=== PATIENT | female | born 1950 | race Caucasian/White ===

== ENCOUNTER 2016-11-10 17:04 | Inpatient (IN) | payer MEDICARE ==
[~2016-11-10] VITALS: Ht 165.1 cm; Wt 83.0 kg
[2016-11-10 17:07] VITALS: BP 105/57; PULSE 118; RESP 15; TEMP 98; O2SAT 96
--- NOTE | 2016-11-10 19:05 | PD ---
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 Patient endorses shortness of breath, weakness. She denies dysuria, back pain. She states that after her hip surgery she was told that her spleen was very enlarged. She just moved to the area, no local primary care. PFSH Past Medical History ?: Not Social History Tobacco Use: No Allergies-Medications (Allergen,Severity, Reaction): Coded Allergies: Dilaudid (Verified Allergy, Unknown, 11/10/16) Reported Meds & Prescriptions Reported Meds & Active Scripts Active Reported Multi Vitamin (Multiple Vitamin) 1 Tab Tab 1 Tab PO DAILY E400 (Vitamin E) 400 Unit Cap 400 Mg PO DAILY Ursodiol 300 Mg Cap 800 Mg PO TID Lorraine (Lorraine (Zingiber Officinalis)) 500 Mg Cap 500 Mg PO DAILY Ferrous Gluconate 324 Mg Tab 324 Mg PO DAILY B-12 (Cyanocobalamin) 1,000 Mcg Subl 800 Mcg SL DAILY Calcium Magnesium 750 (Calcium-Magnesium) 300-300 Mg Tab 1 Tab PO Calcium Carbonate 500 Mg Chew 500 Mg CHEW DAILY 500 mg calcium carbonate (200 mg elemental calcium) Review of Systems Except as stated in HPI: all other systems reviewed are Neg Physical Exam Narrative GENERAL: Well-nourished, well-developed ill-appearing, tremulous white female in moderate distress. SKIN: Pale, cool, dry. HEAD: Normocephalic. EYES: No scleral icterus. No injection or drainage. NECK: Supple, trachea midline. No JVD or lymphadenopathy. CARDIOVASCULAR: Regular rate and rhythm without murmurs, gallops, or rubs. 2+ DP and radial pulses bilaterally. RESPIRATORY: Breath sounds clear and equal bilaterally. No accessory muscle use. GASTROINTESTINAL: Abdomen soft, mildly distended, diffusely, mildly tender. MUSCULOSKELETAL: No cyanosis. Bilateral pitting edema of the lower extremities , left greater than right. BACK: Nontender without obvious deformity. No CVA tenderness. Data Data Last Documented VS Vital Signs Date Time Temp Pulse Resp B/P Pulse Ox O2 Delivery O2 Flow Rate FiO2 11/10/16 19:59 96 Room Air 11/10/16 17:07 98.0 118 15 105/57 Orders Complete Blood Count With Diff (11/10/16 17:13) Comprehensive Metabolic Panel (11/10/16 17:13) Prothrombin Time / Inr (Pt) (11/10/16 17:13) Act Partial Throm Time (Ptt) (11/10/16 17:13) Type And Screen (11/10/16 17:13) Lipase (11/10/16 19:19) Lactic Acid (11/10/16 19:19) Urinalysis - C+S If Indicated (11/10/16 19:19) Ct Abd/Pel W Iv Contrast(Rout) (11/10/16 19:19) Iv Access Insert/Monitor (11/10/16 19:19) Ecg Monitoring (11/10/16 19:19) Oximetry (11/10/16 19:19) NPO (11/10/16 19:19) Ondansetron Inj (Zofran Inj) (11/10/16 19:30) Sodium Chlor 0.9% 1000 Ml Inj (Ns 1000 M (11/10/16 19:19) Electrocardiogram (11/10/16 19:19) Morphine Inj (Morphine Inj) (11/10/16 19:30) Chest, Single Ap (11/10/16 ) Blood Culture (11/10/16 20:16) Sodium Chlor 0.9% 1000 Ml Inj (Ns 1000 M (11/10/16 20:16) Sodium Chlor 0.9% 1000 Ml Inj (Ns 1000 M (11/10/16 20:16) Sodium Chlor 0.9% 1000 Ml Inj (Ns 1000 M (11/10/16 20:16) Labs Laboratory Tests Test 11/10/16 19:50 Blood Type O POSITIVE Blood Bank Comment MDM Medical Decision Making Medical Screen Exam Complete: Yes Emergency Medical Condition: Yes Differential Diagnosis GI bleed versus bowel obstruction versus anemia versus cirrhosis versus liver failure versus other Narrative Course 56-year-old female with history of primary biliary cirrhosis, 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 Patient endorses shortness of breath, weakness. She denies dysuria, back pain. She states that after her hip surgery she was told that her spleen was very enlarged. She just moved to the area, no local primary care. Currently ambulate with a walker, in rehabilitation status post hip replacement. Vitals reviewed. Patient is tachycardic and hypotensive on presentation. On physical exam she is ill-appearing, pale, tremulous. Chest is clear to auscultation bilaterally. Abdomen is mildly distended, mildly tender. Bilateral lower extremity edema, left greater than right. Equal pulses in the extremities. Lab work, blood cultures, EKG, imaging ordered. IV fluid bolus, morphine, Zofran ordered. This patient is transferred to the medical pods under the care of Dr. Ma. Please see his note for disposition. Sepsis Criteria SIRS Criteria (2 or more): Heart rate over 90 Sepsis Criteria (SIRS+source): Infect source susp/known Severe Sepsis (+one): Hypotension, Lactate >2 Criteria Outcome: Meets SIRS criteria, Meets sepsis criteria, Meets severe sepsis criteria Dede Brown Nov 10, 2016 19:05
[2016-11-10] MEDS ORDERED: SODIUM CHLOR 0.9% 1000 ML INJ 1,000 ML IV SCH (19:19)
[2016-11-10] MEDS ORDERED: MORPHINE SULFATE 8 MG/ML INJ IV PUSH ONE (19:30)
[2016-11-10] MEDS ORDERED: ONDANSETRON HCL 4 MG/2 ML VIAL IVP ONE ×2 (19:30→22:15)
[2016-11-10 19:59] VITALS: O2SAT 96
[2016-11-10] MEDS ORDERED: CYAN100025 SL (20:04)
[2016-11-10] MEDS ORDERED: [UNRECOGNIZED DRUG - CODE] PO (20:04)
[2016-11-10] MEDS ORDERED: MULT-135 PO (20:04)
[2016-11-10] MEDS ORDERED: FERR324T PO (20:04)
[2016-11-10] MEDS ORDERED: CALC500C6 CHEW (20:04)
[2016-11-10] MEDS ORDERED: URSO300C2 PO (20:04)
[2016-11-10] MEDS ORDERED: GING500C PO (20:04)
[2016-11-10] MEDS ORDERED: CALCTAB10 PO (20:04)
[2016-11-10 20:09] LABS: AUTOMATED NEUTROPHIL # 6.5 TH/MM3 (1.8-7.7); BASOPHIL # 0.1 TH/MM3 (0-0.2); BASOPHIL % 0.7 % (0.0-2.0); EOSINOPHIL % 0.3 % (0.0-4.0); LYMPH % 17.2 % (9.0-44.0); LYMPHOCYTE # 1.5 TH/MM3 (1.0-4.8); MEAN CORPUSCULAR HEMOGLOBIN 27.8 PG (27.0-34.0); MEAN CORPUSCULAR HGB CONC 33.2 % (32.0-36.0); NEUT % 76.8 % (16.0-70.0); PLATELET COUNT 191 TH/MM3 (150-450); RED BLOOD COUNT 2.39 MIL/MM3 (4.00-5.30); RED CELL DISTRIBUTION WIDTH 18.7 % (11.6-17.2); WHITE BLOOD COUNT 8.5 TH/MM3 (4.0-11.0)
[2016-11-10] MEDS ORDERED: SODIUM CHLOR 0.9% 1000 ML INJ 100 ML IV ONE (20:16)
[2016-11-10] MEDS ORDERED: SODIUM CHLOR 0.9% 1000 ML INJ 1,000 ML IV ONE ×2 (20:16)
--- NOTE | 2016-11-10 20:17 | PD ---
Physical Exam Narrative Patient was seen and examined with my molding line assistant. Patient has history of primary biliary cirrhosis and has been seen by GI specialist up normal. Patient does not have a local physician here. Patient noticed some black tarry stool since yesterday. Rectal exam hemocculted positive. Black tarry stool noted. Data Data Last Documented VS Vital Signs Date Time Temp Pulse Resp B/P Pulse Ox O2 Delivery O2 Flow Rate FiO2 11/10/16 19:59 96 Room Air 11/10/16 17:07 98.0 118 15 105/57 Orders Complete Blood Count With Diff (11/10/16 17:13) Comprehensive Metabolic Panel (11/10/16 17:13) Prothrombin Time / Inr (Pt) (11/10/16 17:13) Act Partial Throm Time (Ptt) (11/10/16 17:13) Type And Screen (11/10/16 17:13) Lipase (11/10/16 19:19) Lactic Acid (11/10/16 19:19) Urinalysis - C+S If Indicated (11/10/16 19:19) Ct Abd/Pel W Iv Contrast(Rout) (11/10/16 19:19) Iv Access Insert/Monitor (11/10/16 19:19) Ecg Monitoring (11/10/16 19:19) Oximetry (11/10/16 19:19) NPO (11/10/16 19:19) Ondansetron Inj (Zofran Inj) (11/10/16 19:30) Sodium Chlor 0.9% 1000 Ml Inj (Ns 1000 M (11/10/16 19:19) Electrocardiogram (11/10/16 19:19) Morphine Inj (Morphine Inj) (11/10/16 19:30) Chest, Single Ap (11/10/16 ) Blood Culture (11/10/16 20:16) Sodium Chlor 0.9% 1000 Ml Inj (Ns 1000 M (11/10/16 20:16) Sodium Chlor 0.9% 1000 Ml Inj (Ns 1000 M (11/10/16 20:16) Sodium Chlor 0.9% 1000 Ml Inj (Ns 1000 M (11/10/16 20:16) Labs Laboratory Tests Test 11/10/16 19:50 White Blood Count 8.5 TH/MM3 Red Blood Count 2.39 MIL/MM3 Hemoglobin 6.7 GM/DL Hematocrit 20.1 % Mean Corpuscular Volume 84.0 FL Mean Corpuscular Hemoglobin 27.8 PG Mean Corpuscular Hemoglobin 33.2 % Concent Red Cell Distribution Width 18.7 % Platelet Count 191 TH/MM3 Mean Platelet Volume 10.4 FL Neutrophils (%) (Auto) 76.8 % Lymphocytes (%) (Auto) 17.2 % Monocytes (%) (Auto) 5.0 % Eosinophils (%) (Auto) 0.3 % Basophils (%) (Auto) 0.7 % Neutrophils # (Auto) 6.5 TH/MM3 Lymphocytes # (Auto) 1.5 TH/MM3 Monocytes # (Auto) 0.4 TH/MM3 Eosinophils # (Auto) 0.0 TH/MM3 Basophils # (Auto) 0.1 TH/MM3 CBC Comment DIFF FINAL Differential Comment Prothrombin Time 12.7 SEC Prothromb Time International 1.1 RATIO Ratio Activated Partial 26.3 SEC Thromboplast Time Sodium Level 145 MEQ/L Potassium Level 4.1 MEQ/L Chloride Level 112 MEQ/L Carbon Dioxide Level 24.1 MEQ/L Anion Gap 9 MEQ/L Blood Urea Nitrogen 38 MG/DL Creatinine 0.68 MG/DL Estimat Glomerular Filtration 87 ML/MIN Rate Random Glucose 131 MG/DL Lactic Acid Level 2.2 mmol/L Calcium Level 7.9 MG/DL Total Bilirubin 0.7 MG/DL Aspartate Amino Transf 28 U/L (AST/SGOT) Alanine Aminotransferase 23 U/L (ALT/SGPT) Alkaline Phosphatase 194 U/L Total Protein 6.0 GM/DL Albumin 2.2 GM/DL Lipase 139 U/L Blood Type O POSITIVE Blood Bank Comment [facility] Supervised Visit with REILLY: Yes Interpretation(s) 2038 PM. CBC WBC 8.5.. Hemoglobin 6.7 hematocrit 20.1. 76 neutrophil. BUN 38. Creatinine 0.68. Lactic acid 2.2. Calcium 7.9. Alkaline phosphatase 194. Narrative Course Normal saline solution 1 L IV bolus. Normal saline solution 70 cc an hour. Protonix 40 mg IV. Diagnosis Primary Impression: GI bleed Qualified Code: K92.2 - Gastrointestinal hemorrhage, unspecified gastrointestinal hemorrhage type Additional Impression: Anemia Qualified Code: D64.9 - Anemia, unspecified type Admitting Information Admitting Physician Requests: Admit Sanya Ma MD Nov 10, 2016 20:17
[2016-11-10 20:20] LABS: APTT (PATIENT) 26.3 SEC (24.3-30.1); INTERNATIONAL NORMALIZED RATIO 1.1 RATIO; PROTHROMBIN TIME - PATIENT 12.7 SEC (9.8-11.6)
[2016-11-10 20:24] LABS: ANION GAP 9 MEQ/L (5-15); AST (GOT) 28 U/L (15-37); BICARBONATE 24.1 MEQ/L (21.0-32.0); BLOOD UREA NITROGEN 38 MG/DL (7-18); CHLORIDE 112 MEQ/L (98-107); GLOMERULAR FILTRATION RATE 87 ML/MIN (>89); POTASSIUM 4.1 MEQ/L (3.5-5.1); SODIUM (NA) 145 MEQ/L (136-145)
[2016-11-10 20:26] LABS: HEMO FLAGS DIFF FINAL
[2016-11-10 20:27] LABS: ALKALINE PHOSPHATASE 194 U/L (45-117); ALT (GPT) 23 U/L (10-53); TOTAL BILIRUBIN ADULT 0.7 MG/DL (0.2-1.0)
[2016-11-10 20:28] LABS: HEMATOCRIT 20.1 % (35.0-46.0)
[2016-11-10] MEDS ORDERED: PANTOPRAZOLE SODIUM 40 MG VIAL IV PUSH ONE (20:45)
[2016-11-10] MEDS ORDERED: IOHEXOL 350 MG/ML 10 ML VIAL (for RAD DIAG) IV ONE (20:50)
--- NOTE | 2016-11-10 21:10 | RADRPT ---
EXAM DATE/TIME: 11/10/2016 20:47 [facility] COMPARISON: No previous studies available for comparison. INDICATIONS : Nausea, diarrhea and melena. IV CONTRAST: 70 cc Omnipaque 350 (iohexol) IV ORAL CONTRAST: No oral contrast ingested. RADIATION DOSE: 8.27 CTDIvol (mGy) MEDICAL HISTORY : Primary biliary sarcosis. SURGICAL HISTORY : Left femur cyril. Liver transplant. ENCOUNTER: Initial ACUITY: 1 day PAIN SCALE: 6/10 LOCATION: Bilateral upper quadrant TECHNIQUE: Volumetric scanning of the abdomen and pelvis was performed. Using automated exposure control and ad justment of the mA and/or kV according to patient size, radiation dose was kept as low as reasonably achievable to obtain optimal diagnostic quality images. FINDINGS: There is subsegmental airspace disease at the right lung base. There is liver cirrhosis with moderate ascites. Small hiatal hernia. Small varices suspected near the GE junction. Spleen is mildly prominent in size. Adrenals, kidneys and pancreas unremarkable. No bob cified gallstones are blue ductal dilatation. There is no bowel obstruction. No free air. There is a mild compression fracture through superior end plate of L2 of uncertain age but probably subacute. CONCLUSION: 1. Liver cirrhosis with moderate ascites. Mild varices in the upper abdomen. 2. Mild infiltrate right lung base. 3. Compression fracture of L2. 4. Small hiatal hernia. John Steele MD on November 10, 2016 at 21:05 Board Certified Radiologist. This report was verified electronically.
[2016-11-10] MEDS ORDERED: SODIUM CHLOR 0.9% 250 ML INJ 250 ML IV ONE (21:15)
[2016-11-10 21:34] VITALS: BP 112/52; PULSE 98; RESP 18; O2SAT 97
--- NOTE | 2016-11-10 21:48 | RADRPT ---
EXAM DATE/TIME: 11/10/2016 20:00 [facility] COMPARISON: No previous studies available for comparison. INDICATIONS : Cough for two weeks and blood in stool. MEDICAL HISTORY : None. SURGICAL HISTORY : None. ENCOUNTER: Initial ACUITY: 2 weeks PAIN SCORE: 3/10 LOCATION: Right lower chest FINDINGS: A single view of the chest demonstrates linear atelectasis or scarring at the lung bases. No effusion . No pneumothorax. Heart size within normal limits. CONCLUSION: 1. Linear atelectasis or scarring at the lung bases. No effusion. No pneumothorax. John Steele MD on November 10, 2016 at 21:46 Board Certified Radiologist. This report was verified electronically.
[2016-11-10 22:02] VITALS: BP 114/57; PULSE 92; RESP 18; TEMP 98.1; O2SAT 98
--- NOTE | 2016-11-10 22:06 | PD ---
Physical Exam Date Seen by Provider: Nov 10, 2016 Time Seen by Provider: 22:00 Narrative Accepted in transfer of care from Dr. Ma GENERAL: Well-developed well-nourished pale female in no acute distress no respiratory distress SKIN: Warm and dry. HEAD: Normocephalic. EYES: No scleral icterus. No injection or drainage. NECK: Supple, trachea midline. No JVD or lymphadenopathy. CARDIOVASCULAR: Regular rate and rhythm without murmurs, gallops, or rubs. RESPIRATORY: Breath sounds equal bilaterally. No accessory muscle use. GASTROINTESTINAL: Abdomen soft, non-tender, nondistended. MUSCULOSKELETAL: No cyanosis, bilateral lower extremity edema. BACK: Nontender without obvious deformity. No CVA tenderness. Data Data Last Documented VS Vital Signs Date Time Temp Pulse Resp B/P Pulse Ox O2 Delivery O2 Flow Rate FiO2 11/10/16 22:02 98.1 92 18 114/57 98 Room Air Orders Complete Blood Count With Diff (11/10/16 17:13) Comprehensive Metabolic Panel (11/10/16 17:13) Prothrombin Time / Inr (Pt) (11/10/16 17:13) Act Partial Throm Time (Ptt) (11/10/16 17:13) Type And Screen (11/10/16 17:13) Lipase (11/10/16 19:19) Lactic Acid (11/10/16 19:19) Urinalysis - C+S If Indicated (11/10/16 19:19) Ct Abd/Pel W Iv Contrast(Rout) (11/10/16 19:19) Iv Access Insert/Monitor (11/10/16 19:19) Ecg Monitoring (11/10/16 19:19) Oximetry (11/10/16 19:19) NPO (11/10/16 19:19) Ondansetron Inj (Zofran Inj) (11/10/16 19:30) Sodium Chlor 0.9% 1000 Ml Inj (Ns 1000 M (11/10/16 19:19) Electrocardiogram (11/10/16 19:19) Morphine Inj (Morphine Inj) (11/10/16 19:30) Chest, Single Ap (11/10/16 ) Blood Culture (11/10/16 20:16) Sodium Chlor 0.9% 1000 Ml Inj (Ns 1000 M (1/20/17 20:16) Sodium Chlor 0.9% 1000 Ml Inj (Ns 1000 M (11/10/16 20:16) Sodium Chlor 0.9% 1000 Ml Inj (Ns 1000 M (11/10/16 20:16) Pantoprazole Inj (Protonix Inj) (11/10/16 20:45) Iohexol 350 Inj (Omnipaque 350 Inj) (11/10/16 20:50) Red Blood Cells (Rbc) (11/10/16 21:01) Blood Product Administration .UPON TRANSFUSION (11/10/16 21:01) Sodium Chlor 0.9% 250 Ml Inj (Ns 250 Ml (11/10/16 21:15) Ondansetron Inj (Zofran Inj) (11/10/16 22:15) Sodium Chloride 0.9% Flush (Ns Flush) (11/10/16 22:15) Octreotide Inj (Sandostatin Inj) (11/10/16 22:15) Pantoprazole Inj (Protonix Inj) (11/10/16 22:15) Pantoprazole Inj (Protonix Inj) (11/10/16 22:15) Labs Laboratory Tests Test 11/10/16 11/10/16 19:50 21:25 White Blood Count 8.5 TH/MM3 Red Blood Count 2.39 MIL/MM3 Hemoglobin 6.7 GM/DL Hematocrit 20.1 % Mean Corpuscular Volume 84.0 FL Mean Corpuscular Hemoglobin 27.8 PG Mean Corpuscular Hemoglobin 33.2 % Concent Red Cell Distribution Width 18.7 % Platelet Count 191 TH/MM3 Mean Platelet Volume 10.4 FL Neutrophils (%) (Auto) 76.8 % Lymphocytes (%) (Auto) 17.2 % Monocytes (%) (Auto) 5.0 % Eosinophils (%) (Auto) 0.3 % Basophils (%) (Auto) 0.7 % Neutrophils # (Auto) 6.5 TH/MM3 Lymphocytes # (Auto) 1.5 TH/MM3 Monocytes # (Auto) 0.4 TH/MM3 Eosinophils # (Auto) 0.0 TH/MM3 Basophils # (Auto) 0.1 TH/MM3 CBC Comment DIFF FINAL Differential Comment Prothrombin Time 12.7 SEC Prothromb Time International 1.1 RATIO Ratio Activated Partial 26.3 SEC Thromboplast Time Sodium Level 145 MEQ/L Potassium Level 4.1 MEQ/L Chloride Level 112 MEQ/L Carbon Dioxide Level 24.1 MEQ/L Anion Gap 9 MEQ/L Blood Urea Nitrogen 38 MG/DL Creatinine 0.68 MG/DL Estimat Glomerular Filtration 87 ML/MIN Rate Random Glucose 131 MG/DL Lactic Acid Level 2.2 mmol/L Calcium Level 7.9 MG/DL Total Bilirubin 0.7 MG/DL Aspartate Amino Transf 28 U/L (AST/SGOT) Alanine Aminotransferase 23 U/L (ALT/SGPT) Alkaline Phosphatase 194 U/L Total Protein 6.0 GM/DL Albumin 2.2 GM/DL Lipase 139 U/L Blood Type O POSITIVE O POSITIVE Antibody Screen NEGATIVE Crossmatch Leukocyte-Reduced Red Blood Cells Blood Bank Comment [facility] Medical Record Reviewed: Yes Supervised Visit with REILLY: No Interpretation(s) Laboratory Tests Test 11/10/16 11/10/16 19:50 21:25 White Blood Count 8.5 TH/MM3 Red Blood Count 2.39 MIL/MM3 Hemoglobin 6.7 GM/DL Hematocrit 20.1 % Mean Corpuscular Volume 84.0 FL Mean Corpuscular Hemoglobin 27.8 PG Mean Corpuscular Hemoglobin 33.2 % Concent Red Cell Distribution Width 18.7 % Platelet Count 191 TH/MM3 Mean Platelet Volume 10.4 FL Neutrophils (%) (Auto) 76.8 % Lymphocytes (%) (Auto) 17.2 % Monocytes (%) (Auto) 5.0 % Eosinophils (%) (Auto) 0.3 % Basophils (%) (Auto) 0.7 % Neutrophils # (Auto) 6.5 TH/MM3 Lymphocytes # (Auto) 1.5 TH/MM3 Monocytes # (Auto) 0.4 TH/MM3 Eosinophils # (Auto) 0.0 TH/MM3 Basophils # (Auto) 0.1 TH/MM3 CBC Comment DIFF FINAL Differential Comment Prothrombin Time 12.7 SEC Prothromb Time International 1.1 RATIO Ratio Activated Partial 26.3 SEC Thromboplast Time Sodium Level 145 MEQ/L Potassium Level 4.1 MEQ/L Chloride Level 112 MEQ/L Carbon Dioxide Level 24.1 MEQ/L Anion Gap 9 MEQ/L Blood Urea Nitrogen 38 MG/DL Creatinine 0.68 MG/DL Estimat Glomerular Filtration 87 ML/MIN Rate Random Glucose 131 MG/DL Lactic Acid Level 2.2 mmol/L Calcium Level 7.9 MG/DL Total Bilirubin 0.7 MG/DL Aspartate Amino Transf 28 U/L (AST/SGOT) Alanine Aminotransferase 23 U/L (ALT/SGPT) Alkaline Phosphatase 194 U/L Total Protein 6.0 GM/DL Albumin 2.2 GM/DL Lipase 139 U/L Blood Type O POSITIVE O POSITIVE Antibody Screen NEGATIVE Crossmatch Leukocyte-Reduced Red Blood Cells Blood Bank Comment Last Impressions Abdomen/Pelvis CT 11/10/16 1919 Signed Impressions: Service Date/Time: Thursday, November 10, 2016 20:47 - CONCLUSION: 1. Liver cirrhosis with moderate ascites. Mild varices in the upper abdomen. 2. Mild infiltrate right lung base. 3. Compression fracture of L2. 4. Small hiatal hernia. John Steele MD Chest X-Ray 11/10/16 0000 Signed Impressions: Service Date/Time: Thursday, November 10, 2016 20:00 - CONCLUSION: 1. Linear atelectasis or scarring at the lung bases. No effusion. No pneumothorax. John Steele MD Differential Diagnosis Generalized weakness, anemia, GI bleed, esophageal variceal bleed Narrative Course Accepted in transfer of care from Dr. Ma for patient disposition Patient identified to have anemia associated with GI bleed with black tarry stools and by CT evidence of esophageal varices; Patient's had nausea without vomiting; Physician Communication Physician Communication case discussed with [facility] for admission; call placed to pattern repair person GI Diagnosis Primary Impression: GI bleed Qualified Code: K92.2 - Gastrointestinal hemorrhage, unspecified gastrointestinal hemorrhage type Additional Impression: Anemia Qualified Code: D64.9 - Anemia, unspecified type Stephanie Almanzar MD Nov 10, 2016 22:06
[2016-11-10] MEDS ORDERED: PANTOPRAZOLE INJ 80 MG in SODIUM CHLORIDE 0.9% INJ 35 ML IV ONE (22:15)
[2016-11-10] MEDS ORDERED: SODIUM CHLORIDE 0.9% FLUSH 5 ML FLUSH IVF PRN ×2 (22:15→23:00)
[2016-11-10] MEDS: OCTREOTIDE INJ 500 MCG in SODIUM CHLORID 0.9% 500 ML INJ 500 ML IV SCH (23:09)
[2016-11-10] MEDS: PANTOPRAZOLE INJ 80 MG in SODIUM CHLORIDE 0.9% INJ 100 ML IV SCH (23:09)
[2016-11-10 23:45] VITALS: BP 103/59; PULSE 98; RESP 18; TEMP 98.4; O2SAT 99
[2016-11-11] VITALS (21 sets, daily range): BP systolic 90–122; BP diastolic 45–64; PULSE 62–96; RESP 12–20; TEMP 97.6–98.8; O2SAT 95–100
[2016-11-11 00:07] LABS: BLOOD, URINE NEG (NEG); COMMENT (UR) CULT NOT INDICATED; CULTURE IF INDICATED CULT NOT INDICATED; GLUCOSE,URINE NEG (NEG); KETONE, URINE NEG (NEG); MUCUS URINE FEW /lpf (OCC); NITRITE,URINE NEG (NEG); URINE COLOR YELLOW (YELLW/STRAW)
--- NOTE | 2016-11-11 00:40 | HHI.HP ---
HPI Service Critical Care Medicine Primary Care Physician No Primary Care Physician Admission Diagnosis GI bleed; esophageal varices Diagnosis: Travel History International Travel<30 Days: No Contact w/Intl Traveler <30 Da: No Traveled to Known Affected Are: No History of Present Illness HPI 56-year-old female with history of primary biliary cirrhosis, diagnosed in the 90s, recent left hip fracture with surgical repair who presented to the ER with melena going on for about 48 hours with diarrhea, abdominal distention/ discomfort and nausea. She denies any hematemesis. She does have some shortness of breath and generalized weakness. Denies any fevers or chills. Denies any back pain. She has just moved to the area. PFSH Past Medical History Primary biliary cirrhosis with known esophageal varices and portal hypertension. She was taken off propranolol around the time of her hip fracture surgery due to borderline blood pressures. History of melena a few years ago for which she underwent EGD which revealed esophageal varices. Colonoscopy and was found to have some polyps in the colon which were removed She was told she had an enlarged spleen when she underwent left hip fracture repair. Family history noncontributory at this time Social History Tobacco Use: No Allergies-Medications (Allergen,Severity, Reaction): Coded Allergies: Dilaudid (Verified Allergy, Unknown, 11/10/16) Reported Meds & Prescriptions Reported Meds & Active Scripts Active Reported Multi Vitamin (Multiple Vitamin) 1 Tab Tab 1 Tab PO DAILY E400 (Vitamin E) 400 Unit Cap 400 Mg PO DAILY Ursodiol 300 Mg Cap 800 Mg PO TID Lorraine (Lorraine (Zingiber Officinalis)) 500 Mg Cap 500 Mg PO DAILY Ferrous Gluconate 324 Mg Tab 324 Mg PO DAILY B-12 (Cyanocobalamin) 1,000 Mcg Subl 800 Mcg SL DAILY Calcium Magnesium 750 (Calcium-Magnesium) 300-300 Mg Tab 1 Tab PO Calcium Carbonate 500 Mg Chew 500 Mg CHEW DAILY 500 mg calcium carbonate (200 mg elemental calcium) Review of Systems Except as stated in HPI: all other systems reviewed are Neg Past Family Social History Allergies: Coded Allergies: Dilaudid (Verified Allergy, Unknown, 11/10/16) Physical Exam Vital Signs Vital Signs Date Time Temp Pulse Resp B/P Pulse Ox O2 Delivery O2 Flow Rate FiO2 11/10/16 23:45 98.4 98 18 103/59 99 Room Air 11/10/16 22:02 98.1 92 18 114/57 98 Room Air 11/10/16 21:34 98 18 112/52 97 Room Air 11/10/16 21:02 18 11/10/16 19:59 96 Room Air 11/10/16 17:07 98.0 118 15 105/57 96 Physical Exam Physical Exam Narrative GENERAL: Well-nourished, well-developed ill-appearing,white female, laying in bed in no acute distress. SKIN: Pale, cool, dry. HEAD: Normocephalic. EYES: Pallor present, No scleral icterus. No injection or drainage. NECK: Supple, trachea midline. No JVD or lymphadenopathy. CARDIOVASCULAR: Regular rate and rhythm without murmurs, gallops, or rubs. 2+ DP and radial pulses bilaterally. RESPIRATORY: Breath sounds clear and equal bilaterally. No accessory muscle use. GASTROINTESTINAL: Abdomen soft, mildly distended, mildly tender in the upper abdomen, no guarding. MUSCULOSKELETAL: No cyanosis. Bilateral pitting edema of the lower extremities , left greater than right. BACK: Nontender without obvious deformity. No CVA tenderness. Laboratory Laboratory Tests Test 11/10/16 11/10/16 11/10/16 19:50 21:25 23:40 White Blood Count 8.5 Red Blood Count 2.39 Hemoglobin 6.7 Hematocrit 20.1 Mean Corpuscular Volume 84.0 Mean Corpuscular Hemoglobin 27.8 Mean Corpuscular Hemoglobin 33.2 Concent Red Cell Distribution Width 18.7 Platelet Count 191 Mean Platelet Volume 10.4 Neutrophils (%) (Auto) 76.8 Lymphocytes (%) (Auto) 17.2 Monocytes (%) (Auto) 5.0 Eosinophils (%) (Auto) 0.3 Basophils (%) (Auto) 0.7 Neutrophils # (Auto) 6.5 Lymphocytes # (Auto) 1.5 Monocytes # (Auto) 0.4 Eosinophils # (Auto) 0.0 Basophils # (Auto) 0.1 CBC Comment DIFF FINAL Differential Comment Prothrombin Time 12.7 Prothromb Time International 1.1 Ratio Activated Partial 26.3 Thromboplast Time Sodium Level 145 Potassium Level 4.1 Chloride Level 112 Carbon Dioxide Level 24.1 Anion Gap 9 Blood Urea Nitrogen 38 Creatinine 0.68 Estimat Glomerular Filtration 87 Rate Random Glucose 131 Lactic Acid Level 2.2 Calcium Level 7.9 Total Bilirubin 0.7 Aspartate Amino Transf 28 (AST/SGOT) Alanine Aminotransferase 23 (ALT/SGPT) Alkaline Phosphatase 194 Total Protein 6.0 Albumin 2.2 Lipase 139 Blood Type O POSITIVE O POSITIVE Antibody Screen NEGATIVE Crossmatch Leukocyte-Reduced Red Blood Cells Blood Bank Comment Urine Color YELLOW Urine Turbidity CLEAR Urine pH 6.0 Urine Specific [place] 1.046 Urine Protein NEG Urine Glucose (UA) NEG Urine Ketones NEG Urine Occult Blood NEG Urine Nitrite NEG Urine Bilirubin NEG Urine Urobilinogen LESS THAN 2.0 Urine Leukocyte Esterase NEG Urine RBC 1 Urine WBC 1 Urine Mucus FEW Microscopic Urinalysis Comment CULT NOT INDICATED Date/Time Procedure Status Source Growth 11/10/16 21:35 Aerobic Blood Culture Received Blood Peripheral Pending 11/10/16 21:35 Anaerobic Blood Culture Received Blood Peripheral Pending Result Diagram: 11/10/16194911/10/161949 Imaging Last Impressions Abdomen/Pelvis CT 11/10/161918 Signed Impressions: Service Date/Time: Thursday, November 10, 2016 20:47 - CONCLUSION: 1. Liver cirrhosis with moderate ascites. Mild varices in the upper abdomen. 2. Mild infiltrate right lung base. 3. Compression fracture of L2. 4. Small hiatal hernia. John Steele MD Chest X-Ray 11/10/16 0000 Signed Impressions: Service Date/Time: Thursday, November 10, 2016 20:00 - CONCLUSION: 1. Linear atelectasis or scarring at the lung bases. No effusion. No pneumothorax. John Steele MD Assessment and Plan Assessment and Plan 66-year-old female with: Melena Acute blood loss anemia ; probably secondary to GI bleed from esophageal varices Primary biliary cirrhosis Portal hypertension History of esophageal varices Hypotension Plan: Neuro: Follow neuro status, pain medications as needed. Cardiovascular: Patient received 2 L normal saline earlier. Being transfused 2 units PRBCs. Fluid resuscitation as needed. Watch for hypotension. Pulmonary: Supple or the O2 as needed, bronchodilators when necessary. GI/liver: Nothing by mouth for now. Follow serial H&H, GI consult requested. Patient will probably need EGD/colonoscopy - to be decided by GI. Continue octreotide and Protonix drips. Renal/: Continue IV fluids, strict intake output, monitor and replete electrolytes, follow BUN/creatinine. Heme: Follow CBC and coags. Transfuse to keep hemoglobin above 7 g percent. 2 units PRBCs ordered now. Endocrine: Watch for hyperglycemia, SSI for glycemic control if needed. ID: Hold off on antibiotics at this time. Prophylaxis: Protonix drip, SCDs. No heparin or Lovenox in view of GI bleed. Condition critical Time spent on critical care excluding procedures 60 minutes Herman Velazquez MD Nov 11, 2016 00:40
[2016-11-11] MEDS ORDERED: PROCHLORPERAZINE INJ 10 MG/2 ML VIAL IVS PRN (00:45)
[2016-11-11] MEDS ORDERED: MISCELLANEOUS NURSING INFORMATION XX SCH (03:30)
[2016-11-11] MEDS ORDERED: METOCLOPRAMIDE HCL 10 MG/2 ML VIAL IV PRN (03:30)
[2016-11-11] MEDS ORDERED: SODIUM CHLORIDE 0.9% FLUSH 5 ML FLUSH IV FLUSH PRN (03:30)
[2016-11-11] MEDS ORDERED: ONDANSETRON HCL 4 MG/2 ML VIAL IV PRN (03:30)
[2016-11-11] MEDS ORDERED: CHLORHEXIDINE GLUCONATE 2 % 1 PACK (2 CLOTHS) TOP PRN (03:30)
[2016-11-11] MEDS ORDERED: ACETAMINOPHEN 325 MG TAB PO PRN (03:30)
[2016-11-11] MEDS ORDERED: PROCHLORPERAZINE 25 MG SUPP RECTAL PRN (03:30)
[2016-11-11] MEDS ORDERED: RESP: ALBUTEROL 2.5 MG/IPRATROPIUM 0.5 MG NEB (PRN) INH (03:30)
[2016-11-11] MEDS: SODIUM CHLOR 0.9% 1000 ML INJ 1,000 ML IV SCH ×2 (03:31→15:17)
[2016-11-11] MEDS: CHLORHEXIDINE GLUCONATE 2 % 1 PACK (2 CLOTHS) TOP SCH (04:00)
[2016-11-11] MEDS ORDERED: MORPHINE SULFATE 4 MG/ML INJ IV PRN (04:00)
[2016-11-11 08:20] LABS: HEMATOCRIT 22.9 % (35.0-46.0); REVIEW FLAG FINAL
[2016-11-11] MEDS: OCTREOTIDE INJ 500 MCG in SODIUM CHLORID 0.9% 500 ML INJ 500 ML IV SCH ×2 (08:50→18:40)
[2016-11-11] MEDS: PANTOPRAZOLE INJ 80 MG in SODIUM CHLORIDE 0.9% INJ 100 ML IV SCH ×2 (08:50→18:10)
[2016-11-11] MEDS: SODIUM CHLORIDE 0.9% FLUSH 5 ML FLUSH IV FLUSH SCH ×2 (09:00→21:00)
[2016-11-11] MEDS ORDERED: SODIUM CHLORIDE 0.9% FLUSH 5 ML FLUSH IVF SCH (09:00)
--- NOTE | 2016-11-11 09:07 | PD.CONS ---
HPI History of Present Illness This is a 66 year old female patient who recently located from [place] and came to the ER for GI Bleeding. She was diagnosed with primary biliary cirrhosis by liver biopsy in 1991. She takes Actigall 300mg po TID. She also has a hx of esophageal varices and underwent an EGD/Colonoscopy in November of 2015. She reports that she did not require banding at that time. She was started on propranolol at that time, but taken off of this in September because when she broke her femur and underwent surgery and was having low blood pressure at that time. On , she started having black tarry stools with some red blood. She also had abdominal bloating and a dull ache that went from her RUQ to her abdomen. She had nausea without vomiting. No jaundice. She did have some chills, but no fever. She had a decreased appetite. She cannot identify any aggravating or alleviating factors. She has not had any obvious GI bleeding before. She does drink ETOH or use NSAIDs. (Pamela Zavala) PFSH Past Medical History Primary biliary cirrhosis Esophageal varices Osteoporosis Osteoarthritis Left femoral neck fracture in September Ascites, never required paracentesis Past Surgical History ORIF Left femoral neck fx EGD/Colonoscopy Hysterectomy Cyst taken off left knee at age 13 Tonsillectomy (Pamela Zavala) Coded Allergies: Dilaudid (Verified Allergy, Unknown, 11/10/16) Medications Allergies Coded Allergies Type Severity Reaction Last Updated Verified Dilaudid Allergy Unknown 11/10/16 Yes Active Scripts Medications Dose Route/Sig Days Date Category Dose Instructions Multi Vitamin (Multiple Vitamin) 1 Tab Tab 1 Tab PO DAILY 11/10/16 Reported E400 (Vitamin E) 400 Unit Cap 400 Mg PO DAILY 11/10/16 Reported Ursodiol 300 Mg Cap 800 Mg PO TID 11/10/16 Reported Lorraine (Lorraine (Zingiber Officinalis)) 500 Mg Cap 500 Mg PO DAILY 11/10/16 Reported Ferrous Gluconate 324 Mg Tab 324 Mg PO DAILY 11/10/16 Reported B-12 (Cyanocobalamin) 1,000 Mcg Subl 800 Mcg SL DAILY 11/10/16 Reported Calcium Magnesium 750 (Calcium-Magnesium) 300-300 Mg Tab 1 Tab PO 11/10/16 Reported Calcium Carbonate 500 Mg Chew 500 Mg CHEW DAILY 11/10/16 Reported 500 mg calcium carbonate (200 mg elemental calcium) Family History Denies Social History No tobacco, etoh, or illicit drug use. (Pamela Zavala) Review of Systems Constitutional: COMPLAINS OF: Fatigue, Weight loss (20 lb weight loss since surgery- relates to swelling), Change in appetite Respiratory: COMPLAINS OF: Cough (2 weeks), DENIES: Shortness of breath Gastrointestinal: COMPLAINS OF: Abdominal pain, Black stools, Bloody stools, Nausea, DENIES: Vomiting Musculoskeletal: COMPLAINS OF: Joint pain, Back pain Integumentary: DENIES: Jaundice Hematologic/lymphatic: DENIES: Bruising Neurologic: DENIES: Headache Psychiatric: DENIES: Confusion (Pamela Zavala) GI Exam Vitals I&O Vital Signs Date Time Temp Pulse Resp B/P Pulse Ox O2 Delivery O2 Flow Rate FiO2 11/11/16 07:50 95 21 11/11/16 07:04 98/64 11/11/16 07:00 90 16 91/45 96 Nasal Cannula 2 11/11/16 04:52 98 21 11/11/16 04:21 89 18 90/55 98 Room Air 11/11/16 01:41 97.9 86 18 109/56 98 Room Air 11/11/16 00:36 62 18 100/56 98 Room Air 11/10/16 23:45 98.4 98 18 103/59 99 Room Air 11/10/16 22:02 98.1 92 18 114/57 98 Room Air 11/10/16 21:34 98 18 112/52 97 Room Air 11/10/16 21:02 18 11/10/16 19:59 96 Room Air 11/10/16 17:07 98.0 118 15 105/57 96 I/O 11/10/16 11/10/16 11/10/16 11/11/16 11/11/16 11/11/16 07:00 15:00 23:00 07:00 15:00 23:00 Intake Total 500 ml Output Total 650 ml Balance -150 ml Intake Packed Cells 500 ml Output Urine Total 650 ml Bladder Scan Volume Amount 650 ml Imaging Last Impressions Abdomen/Pelvis CT 11/10/16 191 Signed Impressions: Service Date/Time: Thursday, November 10, 2016 20:47 - CONCLUSION: 1. Liver cirrhosis with moderate ascites. Mild varices in the upper abdomen. 2. Mild infiltrate right lung base. 3. Compression fracture of L2. 4. Small hiatal hernia. John Steele MD Chest X-Ray 11/10/16 0000 Signed Impressions: Service Date/Time: Thursday, November 10, 2016 20:00 - CONCLUSION: 1. Linear atelectasis or scarring at the lung bases. No effusion. No pneumothorax. John Steele MD Laboratory Test 11/10/16 11/10/16 11/10/16 11/11/16 19:50 21:25 23:40 07:35 White Blood Count 8.5 TH/MM3 Red Blood Count 2.39 MIL/MM3 Hemoglobin 6.7 GM/DL 7.6 GM/DL Hematocrit 20.1 % 22.9 % Mean Corpuscular Volume 84.0 FL Mean Corpuscular Hemoglobin 27.8 PG Mean Corpuscular Hemoglobin 33.2 % Concent Red Cell Distribution Width 18.7 % Platelet Count 191 TH/MM3 Mean Platelet Volume 10.4 FL Neutrophils (%) (Auto) 76.8 % Lymphocytes (%) (Auto) 17.2 % Monocytes (%) (Auto) 5.0 % Eosinophils (%) (Auto) 0.3 % Basophils (%) (Auto) 0.7 % Neutrophils # (Auto) 6.5 TH/MM3 Lymphocytes # (Auto) 1.5 TH/MM3 Monocytes # (Auto) 0.4 TH/MM3 Eosinophils # (Auto) 0.0 TH/MM3 Basophils # (Auto) 0.1 TH/MM3 CBC Comment DIFF FINAL Differential Comment Prothrombin Time 12.7 SEC Prothromb Time International 1.1 RATIO Ratio Activated Partial 26.3 SEC Thromboplast Time Sodium Level 145 MEQ/L Potassium Level 4.1 MEQ/L Chloride Level 112 MEQ/L Carbon Dioxide Level 24.1 MEQ/L Anion Gap 9 MEQ/L Blood Urea Nitrogen 38 MG/DL Creatinine 0.68 MG/DL Estimat Glomerular Filtration 87 ML/MIN Rate Random Glucose 131 MG/DL Lactic Acid Level 2.2 mmol/L Calcium Level 7.9 MG/DL Total Bilirubin 0.7 MG/DL Aspartate Amino Transf 28 U/L (AST/SGOT) Alanine Aminotransferase 23 U/L (ALT/SGPT) Alkaline Phosphatase 194 U/L Total Protein 6.0 GM/DL Albumin 2.2 GM/DL Lipase 139 U/L Blood Type O POSITIVE O POSITIVE Antibody Screen NEGATIVE Blood Bank Comment Crossmatch Leukocyte-Reduced Red Blood Cells Urine Color YELLOW Urine Turbidity CLEAR Urine pH 6.0 Urine Specific [place] 1.046 Urine Protein NEG mg/dL Urine Glucose (UA) NEG mg/dL Urine Ketones NEG mg/dL Urine Occult Blood NEG Urine Nitrite NEG Urine Bilirubin NEG Urine Urobilinogen LESS THAN 2.0 MG/DL Urine Leukocyte Esterase NEG Urine RBC 1 /hpf Urine WBC 1 /hpf Urine Mucus FEW /lpf Microscopic Urinalysis Comment CULT NOT INDICATED Date/Time Procedure Status Source Growth 11/10/16 21:35 Aerobic Blood Culture Received Blood Peripheral Pending 11/10/16 21:35 Anaerobic Blood Culture Received Blood Peripheral Pending Physical Examination HEENT: Normocephalic; atraumatic; no jaundice. Throat is clear. NECK: Neck is supple, no JVD, no lymphadenopathy. CHEST: CTA CARDIAC: RRR, HR 97 ABDOMEN: Soft, nondistended, nontender; hepatosplenomegaly; bowel sounds are present in all four quadrants. ascites EXTREMITIES: BLE edema. SKIN: Normal; no rash; no jaundice. [employer] ASS[employer]: No focal deficits; alert and oriented times three. (Pamela Zavala) Assessment and Plan Plan ASSESSMENT: - Upper GI bleed with hx of cirrhosis, esophageal varices. Never had GI bleeding in past. She was on propranolol, but taken off of this in September after ORIF of her femur because she was having Hypotension. Her HR is now 97. She reports melena mixed with red blood since . HH 6.7/20.1 on admission. S/P 2 units of PRBC. It is now 7.6/ 22.9. Coag's and platelets stable. Octreotide gtt, Protonix Gtt. Will schedule for EGD with band ligation today. - Anemia secondary to acute blood loss. HH 6.7/20.1 on admission. S/P 2 units of PRBC. It is now 7.6/22.9. - Primary biliary cirrhosis, esophageal varices. Last EGD/Colonoscopy in November of 2015. She reports that she did not require banding at that time. She was started on propranolol at that time, but taken off of this in September because when she broke her femur and underwent surgery and was having low blood pressure at that time. She does drink ETOH or use NSAIDs. She is on Actigall 300mg po TID. Dx by liver bx in 1991. Recently relocated from [place] and has not yet established with doctor here. PLAN: - Plan for egd with band ligation - Obtain consents - NPO - Octreotide gtt - Protonix gtt - Monitor HH - Transfuse as necessary - Consider BB once B/P allows. Her hr is high 90's, but she is hypotensive and therefore cannot be started on BB at this time - Notify GI of active bleeding - Supportive care - Further recommendations to follow based on results of above - Pt seen and examined by Dr. Han and myself and this note is written on his behalf (Pamela Zavala) Physician Comments Seen and examined with MS. Lucas SMITH< symptoms for a few days, no active bleeding at this time. EGD planned for today. Keep NPO. Protnix/ octreotide.Discussed with pt. and family. Thank you (Dada Han MD) Pamela Zavala Nov 11, 2016 09:07 Dada Han MD Nov 11, 2016 16:45
[2016-11-11 11:00] LABS: HEMATOCRIT 22.9 % (35.0-46.0); REVIEW FLAG FINAL
[2016-11-11 16:29] LABS: HEMATOCRIT 24.5 % (35.0-46.0); REVIEW FLAG FINAL
[2016-11-11] MEDS ORDERED: PROPOFOL 200 MG/20 ML AMP IV ONE (17:19)
[2016-11-11] MEDS ORDERED: EPINEPHrine HCL (1:10,000) 1 MG/10 ML SYRINGE OTHER ONE (17:25)
[2016-11-11 22:00] LABS: HEMATOCRIT 24.1 % (35.0-46.0)
[2016-11-11 22:05] LABS: REVIEW FLAG FINAL
[2016-11-12] VITALS (13 sets, daily range): BP systolic 97–130; BP diastolic 51–77; PULSE 74–90; RESP 17–26; TEMP 97.8–99.1; O2SAT 92–99
[2016-11-12] MEDS: OCTREOTIDE INJ 500 MCG in SODIUM CHLORID 0.9% 500 ML INJ 500 ML IV SCH ×6 (00:20→20:58)
[2016-11-12 02:38] LABS: AUTOMATED NEUTROPHIL # 2.5 TH/MM3 (1.8-7.7); BASOPHIL % 0.9 % (0.0-2.0); EOSINOPHIL # 0.2 TH/MM3 (0-0.4); HEMATOCRIT 22.7 % (35.0-46.0); LYMPH % 24.4 % (9.0-44.0); MEAN CELL VOLUME 82.6 FL (80.0-100.0); MEAN CORPUSCULAR HGB CONC 33.9 % (32.0-36.0); MONO % 7.5 % (0.0-8.0); NEUT % 63.2 % (16.0-70.0); PLATELET COUNT 91 TH/MM3 (150-450); RED BLOOD COUNT 2.75 MIL/MM3 (4.00-5.30); RED CELL DISTRIBUTION WIDTH 18.4 % (11.6-17.2)
[2016-11-12 02:42] LABS: HEMO FLAGS AUTO DIFF
[2016-11-12] MEDS: SODIUM CHLOR 0.9% 1000 ML INJ 1,000 ML IV SCH ×2 (02:44→14:39)
[2016-11-12 03:16] LABS: PLATELET ESTIMATE SMEAR LOW (NORMAL); PLATELET MORPHOLOGY NORMAL (NORMAL); SCAN/DIFF AUTO DIFF CONFIRMED
[2016-11-12 03:17] LABS: BICARBONATE 23.8 MEQ/L (21.0-32.0); CALCIUM-PROTEIN CORRECTED 8.4 MG/DL (8.5-10.1); POTASSIUM 3.6 MEQ/L (3.5-5.1); TOTAL BILIRUBIN ADULT 0.9 MG/DL (0.2-1.0)
[2016-11-12] MEDS: CHLORHEXIDINE GLUCONATE 2 % 1 PACK (2 CLOTHS) TOP SCH (04:00)
[2016-11-12] MEDS: PANTOPRAZOLE INJ 80 MG in SODIUM CHLORIDE 0.9% INJ 100 ML IV SCH ×2 (05:35→14:15)
[2016-11-12] MEDS: SODIUM CHLORIDE 0.9% FLUSH 5 ML FLUSH IV FLUSH SCH ×2 (09:00→20:59)
[2016-11-12] MEDS ORDERED: PNEUMOCOCCAL POLYVALENT INJ 25 MCG/0.5 ML SYR IM ONE (10:00)
[2016-11-12] MEDS ORDERED: INFLUENZA VIRUS VACCINE (QUADRIVALENT) 0.5 ML SYR IM ONE (10:00)
[2016-11-12 11:35] LABS: HEMATOCRIT 25.2 % (35.0-46.0)
[2016-11-12 11:38] LABS: REVIEW FLAG FINAL
--- NOTE | 2016-11-12 13:07 | HHI.CCPN ---
Subjective Remarks/Hospital Course 56-year-old female with history of primary biliary cirrhosis, diagnosed in the s, recent left hip fracture with surgical repair who presented to the ER with melena going on for about 48 hours with diarrhea, abdominal distention/ discomfort and nausea. She denies any hematemesis. She does have some shortness of breath and generalized weakness. Denies any fevers or chills. Denies any back pain. She has just moved to the area. 11/12: Tmax 97.8. The patient doing well today, advanced to clear liquid diet tolerating well. No melena in the last 24 hours. The patient is status post panendoscopy with cautery yesterday Objective Vital Signs Date Time Temp Pulse Resp B/P Pulse Ox O2 Delivery O2 Flow Rate FiO2 11/12/16 12:00 77 11/12/16 12:00 97.8 24 102/59 97 11/12/16 08:51 Nasal Cannula 3.00 100 Intake and Output 11/11/16 11/11/16 11/12/16 08:00 16:00 00:00 Intake Total 500 ml 899 ml 1379 ml Output Total 650 ml 950 ml 400 ml Balance -150 ml -51 ml 979 ml Result Diagram: 11/12/16 1116 11/12/16 0225 Imaging Last Impressions Abdomen/Pelvis CT 11/10/16 1919 Signed Impressions: Service Date/Time: Thursday, November 10, 2016 20:47 - CONCLUSION: 1. Liver cirrhosis with moderate ascites. Mild varices in the upper abdomen. 2. Mild infiltrate right lung base. 3. Compression fracture of L2. 4. Small hiatal hernia. John Steele MD Chest X-Ray 11/10/16 0000 Signed Impressions: Service Date/Time: Thursday, November 10, 2016 20:00 - CONCLUSION: 1. Linear atelectasis or scarring at the lung bases. No effusion. No pneumothorax. John Steele MD Objective Remarks Physical Exam Narrative GENERAL: Well-nourished, well-developed, female, laying in bed in no acute distress. SKIN: Warm and dry. HEAD: Normocephalic. EYES: No pallor present, No scleral icterus. No injection or drainage. NECK: Supple, trachea midline. No JVD or lymphadenopathy. CARDIOVASCULAR: Regular rate and rhythm without murmurs, gallops, or rubs. 2+ DP and radial pulses bilaterally. RESPIRATORY: Breath sounds clear and equal bilaterally. No accessory muscle use. GASTROINTESTINAL: Abdomen soft, mildly distended, mildly tender in the upper abdomen, no guarding. MUSCULOSKELETAL: No cyanosis. Bilateral pitting edema of the lower extremities. BACK: Nontender without obvious deformity. No CVA tenderness. NEURO: GCS 15. CN I-XII grossly intact Urinary Catheter: No Vascular Central Line Catheter: No A/P Assessment and Plan 66-year-old female with: Melena Acute blood loss anemia ; secondary to GI bleed from esophageal varices Primary biliary cirrhosis Portal hypertension History of esophageal varices Hypotension Plan: Neuro: Follow neuro status per ICU protocol, pain medications as needed. Cardiovascular: Normotensive. MAP 71-73, S/P 2 u PRBC 11/11, maintain MAP greater than 65 Fluid resuscitation as needed. Pulmonary: Maintain O2 sat greater than 92%. Currently room air O2 sat 97%. bronchodilators when necessary. GI/liver: Clear liquid diet. Continue to follow serial H&H every 6 hrs, S/P GI panendoscopy, with cauterization of esophageal varices 11/11/15. Continue octreotide and Protonix drips, F/U GI recommendations.Moderate ascites on CT Renal/: Continue IV fluids, strict intake output, monitor and replete electrolytes, follow BUN/creatinine. Heme: Follow CBC and coags. Transfuse to keep hemoglobin above 7 g percent. S/ P 2 u PRBC's on 11/11 Endocrine: Watch for hyperglycemia, SSI for glycemic control if needed. ID: Hold off on antibiotics at this time. Prophylaxis: Protonix drip, SCDs. No heparin or Lovenox in view of GI bleed. Level 3 Physician Sarah Gottlieb MD Nov 12, 2016 13:07
--- NOTE | 2016-11-12 15:00 | HHI.GIFU ---
GI Follow-up Note Consult Follow-up Subjective: Patient laying in bed comfortably, no new complaints, no bleeding, no abdominal pain Objective: PHYSICAL EXAMINATION: Vitals signs stable No fever HEENT: Pupils round and reactive to light; normocephalic; atraumatic; no jaundice. Throat is clear. NECK: Neck is supple, no JVD, no lymphadenopathy. CHEST: Chest is clear to auscultation and percussion. CARDIAC: Regular rate and rhythm with no murmur gallop or rubs. ABDOMEN: Soft, nondistended, nontender; no hepatosplenomegaly; bowel sounds are present in all four quadrants. EXTREMITIES: No clubbing, cyanosis, or edema. SKIN: Normal; no rash; no jaundice. FEATHER CUTTING MACHINE FEEDER: No focal deficits; alert and oriented times three. Available Data (labs, X- Rays, Procedues) : Last Impressions Abdomen/Pelvis CT 11/10/161918 Signed Impressions: Service Date/Time: Thursday, November 10, 2016 20:47 - CONCLUSION: 1. Liver cirrhosis with moderate ascites. Mild varices in the upper abdomen. 2. Mild infiltrate right lung base. 3. Compression fracture of L2. 4. Small hiatal hernia. John Steele MD Chest X-Ray 11/10/16 0000 Signed Impressions: Service Date/Time: Thursday, November 10, 2016 20:00 - CONCLUSION: 1. Linear atelectasis or scarring at the lung bases. No effusion. No pneumothorax. John Steele MD Laboratory Tests Test 11/10/16 11/10/16 11/10/16 11/11/16 19:50 21:25 23:40 07:35 White Blood Count 8.5 TH/MM3 Red Blood Count 2.39 MIL/MM3 Hemoglobin 6.7 GM/DL 7.6 GM/DL Hematocrit 20.1 % 22.9 % Mean Corpuscular Volume 84.0 FL Mean Corpuscular Hemoglobin 27.8 PG Mean Corpuscular Hemoglobin 33.2 % Concent Red Cell Distribution Width 18.7 % Platelet Count 191 TH/MM3 Mean Platelet Volume 10.4 FL Neutrophils (%) (Auto) 76.8 % Lymphocytes (%) (Auto) 17.2 % Monocytes (%) (Auto) 5.0 % Eosinophils (%) (Auto) 0.3 % Basophils (%) (Auto) 0.7 % Neutrophils # (Auto) 6.5 TH/MM3 Lymphocytes # (Auto) 1.5 TH/MM3 Monocytes # (Auto) 0.4 TH/MM3 Eosinophils # (Auto) 0.0 TH/MM3 Basophils # (Auto) 0.1 TH/MM3 CBC Comment DIFF FINAL Differential Comment Prothrombin Time 12.7 SEC Prothromb Time International 1.1 RATIO Ratio Activated Partial 26.3 SEC Thromboplast Time Sodium Level 145 MEQ/L Potassium Level 4.1 MEQ/L Chloride Level 112 MEQ/L Carbon Dioxide Level 24.1 MEQ/L Anion Gap 9 MEQ/L Blood Urea Nitrogen 38 MG/DL Creatinine 0.68 MG/DL Estimat Glomerular Filtration 87 ML/MIN Rate Random Glucose 131 MG/DL Lactic Acid Level 2.2 mmol/L Calcium Level 7.9 MG/DL Total Bilirubin 0.7 MG/DL Aspartate Amino Transf 28 U/L (AST/SGOT) Alanine Aminotransferase 23 U/L (ALT/SGPT) Alkaline Phosphatase 194 U/L Total Protein 6.0 GM/DL Albumin 2.2 GM/DL Lipase 139 U/L Blood Type O POSITIVE O POSITIVE Antibody Screen NEGATIVE Blood Bank Comment Crossmatch Leukocyte-Reduced Red Blood Cells Urine Color YELLOW Urine Turbidity CLEAR Urine pH 6.0 Urine Specific [place] 1.046 Urine Protein NEG mg/dL Urine Glucose (UA) NEG mg/dL Urine Ketones NEG mg/dL Urine Occult Blood NEG Urine Nitrite NEG Urine Bilirubin NEG Urine Urobilinogen LESS THAN 2.0 MG/DL Urine Leukocyte Esterase NEG Urine RBC 1 /hpf Urine WBC 1 /hpf Urine Mucus FEW /lpf Microscopic Urinalysis Comment CULT NOT INDICATED Test 11/11/16 11/11/16 11/11/16 11/11/16 10:47 15:28 15:48 21:11 Hemoglobin 7.7 GM/DL 8.2 GM/DL 8.1 GM/DL Hematocrit 22.9 % 24.5 % 24.1 % Blood Type O POSITIVE Crossmatch Leukocyte-Reduced Red Blood Cells Blood Bank Comment Test 11/12/16 11/12/16 02:25 11:16 White Blood Count 4.0 TH/MM3 Red Blood Count 2.75 MIL/MM3 Hemoglobin 7.7 GM/DL 8.2 GM/DL Hematocrit 22.7 % 25.2 % Mean Corpuscular Volume 82.6 FL Mean Corpuscular Hemoglobin 28.0 PG Mean Corpuscular Hemoglobin 33.9 % Concent Red Cell Distribution Width 18.4 % Platelet Count 91 TH/MM3 Mean Platelet Volume 9.8 FL Neutrophils (%) (Auto) 63.2 % Lymphocytes (%) (Auto) 24.4 % Monocytes (%) (Auto) 7.5 % Eosinophils (%) (Auto) 4.0 % Basophils (%) (Auto) 0.9 % Neutrophils # (Auto) 2.5 TH/MM3 Lymphocytes # (Auto) 1.0 TH/MM3 Monocytes # (Auto) 0.3 TH/MM3 Eosinophils # (Auto) 0.2 TH/MM3 Basophils # (Auto) 0.0 TH/MM3 CBC Comment AUTO DIFF Differential Comment AUTO DIFF CONFIRMED Platelet Estimate LOW Platelet Morphology Comment NORMAL Sodium Level 149 MEQ/L Potassium Level 3.6 MEQ/L Chloride Level 118 MEQ/L Carbon Dioxide Level 23.8 MEQ/L Anion Gap 7 MEQ/L Blood Urea Nitrogen 23 MG/DL Creatinine 0.57 MG/DL Estimat Glomerular Filtration 106 ML/MIN Rate Random Glucose 98 MG/DL Calcium Level 7.3 MG/DL Protein Corrected Calcium 8.4 MG/DL Phosphorus Level 2.8 MG/DL Magnesium Level 2.0 MG/DL Total Bilirubin 0.9 MG/DL Aspartate Amino Transf 30 U/L (AST/SGOT) Alanine Aminotransferase 22 U/L (ALT/SGPT) Alkaline Phosphatase 143 U/L Total Protein 5.1 GM/DL Albumin 1.9 GM/DL Allergies Coded Allergies Type Severity Reaction Last Updated Verified Dilaudid Allergy Unknown 11/10/16 Yes Active Scripts Medications Dose Route/Sig Days Date Category Dose Instructions Multi Vitamin (Multiple Vitamin) 1 Tab Tab 1 Tab PO DAILY 11/10/16 Reported E400 (Vitamin E) 400 Unit Cap 400 Mg PO DAILY 11/10/16 Reported Ursodiol 300 Mg Cap 800 Mg PO TID 11/10/16 Reported Lorraine (Lorraine (Zingiber Officinalis)) 500 Mg Cap 500 Mg PO DAILY 11/10/16 Reported Ferrous Gluconate 324 Mg Tab 324 Mg PO DAILY 11/10/16 Reported B-12 (Cyanocobalamin) 1,000 Mcg Subl 800 Mcg SL DAILY 11/10/16 Reported Calcium Magnesium 750 (Calcium-Magnesium) 300-300 Mg Tab 1 Tab PO 11/10/16 Reported Calcium Carbonate 500 Mg Chew 500 Mg CHEW DAILY 1/20/17 Reported 500 mg calcium carbonate (200 mg elemental calcium) ASSESSMENT/PLAN: Seen and examined, no bleeding. S/P egd yesterday with cautery of a bleeding lesion at the GE junction, ? dieulofy;s lesion. Pt. has varices and needs to be banded. Not done yesterday due to active bleeding and unclear nature of this lesion. Repeat egd/ banding sunday.Continue liquids and octreotide/protonix drips. It was a pleasure seeing Tasha Mcneill. Thank you for this consult. Entered by: Dada Penny MD Nov 12, 2016 14:59
[2016-11-12] MEDS: cefTRIAXone INJ 1,000 MG in SODIUM CHLORIDE 0.9% INJ 100 ML IV SCH (15:22)
[2016-11-12 16:12] LABS: HEMATOCRIT 26.9 % (35.0-46.0); MEAN CORPUSCULAR HEMOGLOBIN 28.2 PG (27.0-34.0); MEAN CORPUSCULAR HGB CONC 32.7 % (32.0-36.0); PLATELET COUNT 94 TH/MM3 (150-450); RED BLOOD COUNT 3.12 MIL/MM3 (4.00-5.30); RED CELL DISTRIBUTION WIDTH 18.4 % (11.6-17.2); WHITE BLOOD COUNT 5.4 TH/MM3 (4.0-11.0)
[2016-11-12 16:14] LABS: REVIEW FLAG FINAL
[2016-11-12 16:39] LABS: INTERNATIONAL NORMALIZED RATIO 1.1 RATIO; PROTHROMBIN TIME - PATIENT 12.1 SEC (9.8-11.6)
[2016-11-12 21:03] LABS: MAGNESIUM 2.2 MG/DL (1.5-2.5); POTASSIUM 3.5 MEQ/L (3.5-5.1)
[2016-11-12 21:11] LABS: HEMATOCRIT 24.4 % (35.0-46.0)
[2016-11-12 21:13] LABS: REVIEW FLAG FINAL
[2016-11-13] VITALS (14 sets, daily range): BP systolic 98–112; BP diastolic 52–59; PULSE 72–89; RESP 12–25; TEMP 97.6–99.7; O2SAT 95–99
[2016-11-13] MEDS: PANTOPRAZOLE INJ 80 MG in SODIUM CHLORIDE 0.9% INJ 100 ML IV SCH ×3 (00:05→20:34)
[2016-11-13] MEDS: OCTREOTIDE INJ 500 MCG in SODIUM CHLORID 0.9% 500 ML INJ 500 ML IV SCH ×4 (01:32→21:10)
[2016-11-13] MEDS: SODIUM CHLOR 0.9% 1000 ML INJ 1,000 ML IV SCH ×2 (01:36→22:58)
[2016-11-13 03:40] LABS: HEMATOCRIT 22.2 % (35.0-46.0); MEAN CELL VOLUME 85.5 FL (80.0-100.0); MEAN CORPUSCULAR HEMOGLOBIN 27.9 PG (27.0-34.0); MEAN CORPUSCULAR HGB CONC 32.7 % (32.0-36.0); PLATELET COUNT 84 TH/MM3 (150-450); RED CELL DISTRIBUTION WIDTH 17.8 % (11.6-17.2); WHITE BLOOD COUNT 3.2 TH/MM3 (4.0-11.0)
[2016-11-13 03:41] LABS: REVIEW FLAG FINAL
[2016-11-13 04:03] LABS: BICARBONATE 22.7 MEQ/L (21.0-32.0); MAGNESIUM 1.9 MG/DL (1.5-2.5); POTASSIUM 3.2 MEQ/L (3.5-5.1)
[2016-11-13 04:06] LABS: APTT (PATIENT) 29.4 SEC (24.3-30.1); INTERNATIONAL NORMALIZED RATIO 1.1 RATIO; PROTHROMBIN TIME - PATIENT 12.6 SEC (9.8-11.6)
[2016-11-13 04:19] LABS: CALCIUM-PROTEIN CORRECTED 8.1 MG/DL (8.5-10.1)
[2016-11-13] MEDS: CHLORHEXIDINE GLUCONATE 2 % 1 PACK (2 CLOTHS) TOP SCH (04:46)
[2016-11-13] MEDS: POTASSIUM CHLOR 20 MEQ PREMIX 100 ML IV SCH ×2 (06:05→08:13)
[2016-11-13] MEDS: SODIUM CHLORIDE 0.9% FLUSH 5 ML FLUSH IV FLUSH SCH ×2 (08:13→21:00)
--- NOTE | 2016-11-13 08:45 | HHI.CCPN ---
Subjective Remarks/Hospital Course 56-year-old female with history of primary biliary cirrhosis, diagnosed in the , recent left hip fracture with surgical repair who presented to the ER with melena going on for about 48 hours with diarrhea, abdominal distention/ discomfort and nausea. She denies any hematemesis. She does have some shortness of breath and generalized weakness. Denies any fevers or chills. Denies any back pain. She has just moved to the area. 11/12: Tmax 97.8. The patient doing well today, advanced to clear liquid diet tolerating well. No melena in the last 24 hours. The patient is status post panendoscopy with cautery yesterday. 11/13 Tmax 99.1. The patient denied any abdominal pain, had 1 BM well-formed, no melena noted. Hemoglobin stable. The patient required O2 via nasal cannula last night, when asleep secondary to desaturation below 90's. The patient scheduled to IR, for assessment and drainage of a moderate amount of ascites today. Tentative plans per GI EGD with banding scheduled for Sunday. Objective Vital Signs Date Time Temp Pulse Resp B/P Pulse Ox O2 Delivery O2 Flow Rate FiO2 11/13/16 06:00 78 11/13/16 04:00 98.5 13 98/56 95 11/12/16 23:02 Nasal Cannula 2.00 11/12/16 08:51 100 Intake and Output 11/12/16 11/12/16 11/13/16 08:00 16:00 00:00 Intake Total 1383 ml 2827 ml 1765 ml Output Total 325 ml 351 ml 325 ml Balance 1058 ml 2476 ml 1440 ml Result Diagram: 11/13/16 0309 11/13/16 0309 Imaging Last Impressions Abdomen/Pelvis CT 11/10/16 1919 Signed Impressions: Service Date/Time: Thursday, November 10, 2016 20:47 - CONCLUSION: 1. Liver cirrhosis with moderate ascites. Mild varices in the upper abdomen. 2. Mild infiltrate right lung base. 3. Compression fracture of L2. 4. Small hiatal hernia. John Steele MD Chest X-Ray 11/10/16 0000 Signed Impressions: Service Date/Time: Thursday, November 10, 2016 20:00 - CONCLUSION: 1. Linear atelectasis or scarring at the lung bases. No effusion. No pneumothorax. John Steele MD Objective Remarks Physical Exam Narrative GENERAL: Well-nourished, well-developed, female, laying in bed in no acute distress. SKIN: Warm and dry. HEAD: Normocephalic. EYES: No pallor present, No scleral icterus. No injection or drainage. NECK: Supple, trachea midline. No JVD or lymphadenopathy. CARDIOVASCULAR: Regular rate and rhythm without murmurs, gallops, or rubs. 2+ DP and radial pulses bilaterally. RESPIRATORY: Breath sounds clear and equal bilaterally. No accessory muscle use. On O2 via nasal cannula. GASTROINTESTINAL: Abdomen soft, mildly distended, mildly tender in the upper abdomen, no guarding. MUSCULOSKELETAL: No cyanosis. Bilateral pitting edema 1+ of the lower extremities. BACK: Nontender without obvious deformity. No CVA tenderness. NEURO: GCS 15. CN I-XII grossly intact Procedures IR assessment and drainage of ascites toay Urinary Catheter: Yes Bacon insert reason: Measure Accurate Output A/P Assessment and Plan 66-year-old female with: Melena Acute blood loss anemia ; secondary to GI bleed from esophageal varices Primary biliary cirrhosis Portal hypertension History of esophageal varices Hypotension Plan: Neuro: Follow neuro status per ICU protocol, pain medications as needed. Cardiovascular: Normotensive.SBP low 100's for last 24 hours. The patient previously on propranolol 10 mg twice a day , for secondary prophylaxis for esophageal varices , will continue to monitor systolic blood pressure and resume beta nicolas at a lower dose ,when clinically appropriate. Maintain MAP greater than 65mmHg. Pulmonary: Maintain O2 sat greater than 92%. Currently room air O2 sat 97%. bronchodilators when necessary. GI/liver: Clear liquid diet. Continue to follow serial H&H every 6 hrs, S/P GI panendoscopy, with cauterization of esophageal varices 11/11/15. Continue octreotide and Protonix drips, F/U GI recommendations, plan for EGD banding on .Moderate ascites on CT 11/11, patient required O2 at 2 L nasal cannula while sleeping. To IR today for assessment and drainage of moderate amount of ascites. Renal/: Continue IV fluids, strict intake output, monitor and replete electrolytes, follow BUN/creatinine. Heme: Follow CBC and coags. Transfuse to keep hemoglobin above 7 g percent. S/ P 2 u PRBC's on 11/11 Endocrine: Watch for hyperglycemia, SSI for glycemic control if needed. ID: Tmax 99.1. Rocephin 1 g every 24 hours initiated, for SBP prophylaxis Prophylaxis: Protonix drip, SCDs. No heparin or Lovenox in view of GI bleed. Level 3 Physician Sarah Gottlieb MD Nov 13, 2016 08:45
[2016-11-13] MEDS ORDERED: POTASSIUM PHOSPHATE INJ 30 MMOL in SODIUM CHLOR 0.9% 250 ML INJ 250 ML IV ONE (10:00)
--- NOTE | 2016-11-13 10:33 | HHI.GIFU ---
Subjective Remarks Resting in bed. No active bleeding. No abdominal pain. Going for paracentesis today. Objective Vitals I&O Vital Signs Date Time Temp Pulse Resp B/P Pulse Ox O2 Delivery O2 Flow Rate FiO2 11/13/16 08:51 98 21 11/13/16 08:00 97.6 72 15 100/52 99 11/13/16 08:00 72 11/13/16 07:00 98 Room Air 11/13/16 06:00 78 11/13/16 04:00 72 11/13/16 04:00 98.5 73 13 98/56 95 11/13/16 02:00 81 11/13/16 00:00 74 11/13/16 00:00 99.0 74 12 99/55 95 11/12/16 23:02 94 Nasal Cannula 2.00 11/12/16 22:00 85 11/12/16 20:00 99.1 90 26 103/51 95 11/12/16 20:00 85 11/12/16 19:00 94 Room Air 11/12/16 18:00 89 11/12/16 16:00 98.3 74 21 130/77 92 11/12/16 16:00 84 11/12/16 14:00 76 11/12/16 12:00 77 11/12/16 12:00 97.8 76 24 102/59 97 I/O 11/12/16 11/12/16 11/12/16 11/13/16 11/13/16 11/13/16 07:00 15:00 23:00 07:00 15:00 23:00 Intake Total 1383 ml 2827 ml 1765 ml 1704 ml Output Total 325 ml 351 ml 325 ml 250 ml Balance 1058 ml 2476 ml 1440 ml 1454 ml Intake Oral 75 ml 360 ml 240 ml 60 ml IV Total 1308 ml 2467 ml 1525 ml 1644 ml Output Urine Total 325 ml 350 ml 325 ml 250 ml Stool Total 0 ml 1 ml 0 ml # Bowel Movements 0 Laboratory Laboratory Tests Test 11/12/16 11/12/16 11/12/16 11/12/16 11:16 15:54 15:59 20:50 Hemoglobin 8.2 8.8 7.9 Hematocrit 25.2 26.9 24.4 Prothrombin Time 12.1 Prothromb Time International 1.1 Ratio Activated Partial 25.0 Thromboplast Time Sodium Level 145 Potassium Level 3.5 Chloride Level 116 Carbon Dioxide Level 21.0 Anion Gap 8 Blood Urea Nitrogen 18 Creatinine 0.65 Estimat Glomerular Filtration 91 Rate Random Glucose 99 Calcium Level 7.3 Protein Corrected Calcium 8.0 Magnesium Level 2.2 Total Protein 5.8 5.4 White Blood Count 5.4 Red Blood Count 3.12 Mean Corpuscular Volume 86.0 Mean Corpuscular Hemoglobin 28.2 Mean Corpuscular Hemoglobin 32.7 Concent Red Cell Distribution Width 18.4 Platelet Count 94 Mean Platelet Volume 10.1 Lactate Dehydrogenase 159 Test 11/13/16 03:09 White Blood Count 3.2 Red Blood Count 2.60 Hemoglobin 7.3 Hematocrit 22.2 Mean Corpuscular Volume 85.5 Mean Corpuscular Hemoglobin 27.9 Mean Corpuscular Hemoglobin 32.7 Concent Red Cell Distribution Width 17.8 Platelet Count 84 Mean Platelet Volume 10.4 Prothrombin Time 12.6 Prothromb Time International 1.1 Ratio Activated Partial 29.4 Thromboplast Time Sodium Level 147 Potassium Level 3.2 Chloride Level 116 Carbon Dioxide Level 22.7 Anion Gap 8 Blood Urea Nitrogen 15 Creatinine 0.52 Estimat Glomerular Filtration 118 Rate Random Glucose 96 Calcium Level 7.0 Protein Corrected Calcium 8.1 Phosphorus Level 2.2 Magnesium Level 1.9 Total Protein 5.0 Date/Time Procedure Status Source Growth 11/10/16 21:35 Aerobic Blood Culture - Preliminary Resulted Blood Peripheral NO GROWTH IN 2 DAYS 11/10/16 21:35 Anaerobic Blood Culture - Preliminary Resulted Blood Peripheral NO GROWTH IN 2 DAYS Imaging Last Impressions Abdomen/Pelvis CT 11/10/16 1919 Signed Impressions: Service Date/Time: Thursday, November 10, 2016 20:47 - CONCLUSION: 1. Liver cirrhosis with moderate ascites. Mild varices in the upper abdomen. 2. Mild infiltrate right lung base. 3. Compression fracture of L2. 4. Small hiatal hernia. John Steele MD Chest X-Ray 11/10/16 0000 Signed Impressions: Service Date/Time: Thursday, November 10, 2016 20:00 - CONCLUSION: 1. Linear atelectasis or scarring at the lung bases. No effusion. No pneumothorax. John Steele MD Physical Exam HEENT: Normocephalic; atraumatic; no jaundice. CHEST: Chest is clear to auscultation and percussion. CARDIAC: RRR ABDOMEN: Soft, nondistended, nontender; hepatosplenomegaly; bowel sounds are present in all four quadrants. Large amount of ascites EXTREMITIES: BLE edema. SKIN: Normal; no rash; no jaundice. RECONCILIATION ANALYST: No focal deficits; alert and oriented times three. Assessment and Plan Plan ASSESSMENT: - Upper GI bleed with hx of cirrhosis, esophageal varices. Never had GI bleeding in past. She was on propranolol, but taken off of this in September after ORIF of her femur because she was having Hypotension. She reports melena mixed with red blood since . S/P EGD with cautery (11/11/16)---> cautery of a lesion at GE junction ? Dieulofoy lesion. Varices. Varices were not banded at that time secondary to active bleeding. Octreotide gtt, Protonix Gtt. Ceftriaxone. Will schedule for EGD with band ligation tomorrow. HH 7.3/ .2. No active bleeding. - Anemia secondary to acute blood loss. HS/P 3 units of PRBC. 7./.2. - Primary biliary cirrhosis, esophageal varices. Last EGD/Colonoscopy in November of 2015. She reports that she did not require banding at that time. She was started on propranolol at that time, but taken off of this in September because when she broke her femur and underwent surgery and was having low blood pressure at that time. She does drink ETOH or use NSAIDs. She is on Actigall 300mg po TID. Dx by liver bx in 1991. Recently relocated from [place] and has not yet established with doctor here. - Ascites. For paracentesis today. Will add lasix, furosemide. Ceftriaxone PLAN: - Plan for egd with band ligation tomorrow - Obtain consents - NPO after MN - Octreotide gtt - Protonix gtt - Add furosemide 20mg po daily - Add spironolactone 25mg po daily - Monitor B/P - Monitor HH - Transfuse as necessary - Consider BB once B/P allows. - Notify GI of active bleeding - Supportive care - Further recommendations to follow based on results of above - Pt seen and examined by Dr. Nath and myself and this note is written on his behalf Pamela Zavala Nov 13, 2016 10:33
[2016-11-13] MEDS: SPIRONOLACTONE 25 MG TAB PO SCH (11:03)
[2016-11-13] MEDS: FUROSEMIDE 20 MG TAB PO SCH (11:04)
[2016-11-13 11:12] LABS: HEMATOCRIT 24.9 % (35.0-46.0)
[2016-11-13 11:17] LABS: REVIEW FLAG FINAL
--- NOTE | 2016-11-13 15:25 | RADRPT ---
EXAM DATE/TIME: 11/13/2016 13:00 [facility] COMPARISON: No previous studies available for comparison. INDICATIONS : Ascites. MEDICAL HISTORY : Cirrhosis. SURGICAL HISTORY : EGD. Left knee cyst aspiration. Liver biopsy. Hysterectomy. Tonsillectomy. ENCOUNTER: Initial ACUITY: 2 days PAIN SCORE: 4/10 LOCATION: Right lower quadrant FLUID: Total volume of 4,600 cc of clear, yellow fluid was removed. Fluid was sent to lab for ordered studies. Post procedure scanning reveals no hematoma or other complication. TECHNIQUE: 1. Ultrasound guidance for abdominal paracentesis. 2. Paracentesis. The risks, benefits, and alternatives to ultrasound guided paracentesis were explained to the patient in detail including the risk of bleeding and infection. Written and verbal informed consent was obt ained. With the patient on the ultrasound table, ultrasound imaging was used to select the most appropriate approach for paracentesis. Overlying skin was prepped and draped in the usual sterile fashion and wi th a local anesthetic, a dermatotomy was made with an 11 blade scalpel. A 6 Portuguese Gxy-S-fdpsschm ca theter was introduced into the peritoneal cavity and fluid was collected. The patient tolerated the procedure well and left the ultrasound suite in stable condition. CONCLUSION: Uncomplicated ultrasound guided paracentesis. Manjit López MD FACR on November 13, 2016 at 15:24 Board Certified Radiologist. This report was verified electronically.
[2016-11-13] MEDS: cefTRIAXone INJ 1,000 MG in SODIUM CHLORIDE 0.9% INJ 100 ML IV SCH (16:25)
[2016-11-13 16:56] LABS: HEMATOCRIT 25.7 % (35.0-46.0); REVIEW FLAG FINAL
[2016-11-13 19:29] LABS: PERITONEAL LYMPHS 31 %; PERITONEAL MONOS 9 %; PERITONEAL POLYS(SEGS) 60 %; PERITONEAL WBC 174 /MM3 (0-10)
[2016-11-13 21:44] LABS: HEMATOCRIT 24.8 % (35.0-46.0)
[2016-11-13 21:46] LABS: REVIEW FLAG FINAL
--- NOTE | 2016-11-13 22:40 | EKG ---
Date Performed: 11/10/2016 Time Performed: 20:17:39 PTAGE: 66 years EKG: SINUS TACHYCARDIA WITH SHORT SC INTERVAL NONSPECIFIC T-WAVE ABNORMALITY ABNORMAL RHYTHM ECG NO PREVIOUS TRACING DOCTOR: Santana Stewart Interpretating Date/Time 11/13/2016 22:39:20
[2016-11-14] VITALS (15 sets, daily range): BP systolic 101–108; BP diastolic 51–66; PULSE 74–93; RESP 16–26; TEMP 98.1–99; O2SAT 93–96
[2016-11-14] MEDS: OCTREOTIDE INJ 500 MCG in SODIUM CHLORID 0.9% 500 ML INJ 500 ML IV SCH ×5 (01:39→20:11)
[2016-11-14 04:13] LABS: AUTOMATED NEUTROPHIL # 1.7 TH/MM3 (1.8-7.7); BASOPHIL % 0.7 % (0.0-2.0); EOSINOPHIL # 0.1 TH/MM3 (0-0.4); EOSINOPHIL % 5.3 % (0.0-4.0); HEMATOCRIT 23.3 % (35.0-46.0); HEMO FLAGS DIFF FINAL; LYMPH % 23.4 % (9.0-44.0); LYMPHOCYTE # 0.6 TH/MM3 (1.0-4.8); MEAN CELL VOLUME 85.6 FL (80.0-100.0); MEAN CORPUSCULAR HEMOGLOBIN 28.3 PG (27.0-34.0); MEAN CORPUSCULAR HGB CONC 33.1 % (32.0-36.0); MONO % 9.1 % (0.0-8.0); NEUT % 61.5 % (16.0-70.0); PLATELET COUNT 124 TH/MM3 (150-450); RED BLOOD COUNT 2.72 MIL/MM3 (4.00-5.30); RED CELL DISTRIBUTION WIDTH 18.5 % (11.6-17.2); WHITE BLOOD COUNT 2.7 TH/MM3 (4.0-11.0)
[2016-11-14 04:45] LABS: BICARBONATE 22.9 MEQ/L (21.0-32.0); POTASSIUM 3.5 MEQ/L (3.5-5.1)
[2016-11-14 04:57] LABS: CALCIUM-PROTEIN CORRECTED 8.3 MG/DL (8.5-10.1)
[2016-11-14] MEDS: CHLORHEXIDINE GLUCONATE 2 % 1 PACK (2 CLOTHS) TOP SCH (05:09)
[2016-11-14] MEDS: PANTOPRAZOLE INJ 80 MG in SODIUM CHLORIDE 0.9% INJ 100 ML IV SCH ×2 (05:09→14:20)
[2016-11-14] MEDS: SPIRONOLACTONE 25 MG TAB PO SCH (09:00)
[2016-11-14] MEDS: FUROSEMIDE 20 MG TAB PO SCH (09:00)
[2016-11-14] MEDS ORDERED: POTASSIUM CHLOR 10 MEQ PREMIX 100 ML IV ONE (11:00)
--- NOTE | 2016-11-14 11:00 | HHI.PR ---
Subjective Remarks Patient laying in bed afebrile No nausea or vomiting, no abdominal pain, she had thoracentesis yesterday, she is going for EGD with possible esophageal varices ligation Objective Vitals Vital Signs Date Time Temp Pulse Resp B/P Pulse Ox O2 Delivery O2 Flow Rate FiO2 11/14/16 08:02 94 21 11/14/16 08:00 83 11/14/16 08:00 98.2 83 18 103/57 93 11/14/16 07:00 95 Room Air 11/14/16 06:00 81 11/14/16 04:00 98.6 80 18 105/66 93 11/14/16 04:00 80 11/14/16 02:00 75 11/14/16 00:20 93 21 11/14/16 00:00 99.0 93 16 101/51 93 11/14/16 00:00 81 11/13/16 22:00 84 11/13/16 20:00 98.9 88 25 100/59 96 11/13/16 20:00 89 11/13/16 19:00 98 Room Air 11/13/16 18:00 87 11/13/16 16:00 82 11/13/16 16:00 99.7 83 16 112/56 96 11/13/16 14:37 98.5 85 20 105/58 97 11/13/16 14:00 84 11/13/16 12:00 98.6 73 15 106/53 97 11/13/16 12:00 73 I/O 11/13/16 11/13/16 11/13/16 11/14/16 11/14/16 11/14/16 07:00 15:00 23:00 07:00 15:00 23:00 Intake Total 1704 ml 625 ml 1699 ml 1096 ml Output Total 250 ml 1350 ml 650 ml 725 ml Balance 1454 ml -725 ml 1049 ml 371 ml Intake Oral 60 ml 0 ml 240 ml 0 ml IV Total 1644 ml 625 ml 1459 ml 1096 ml Output Urine Total 250 ml 1350 ml 650 ml 725 ml # Bowel Movements 0 0 0 0 Result Diagram: 11/14/1632611/14/16326 Objective Remarks GENERAL: This is a well-nourished, well-developed patient, in no apparent distress. SKIN: No rashes, warm and dry HEAD: Atraumatic. Normocephalic. EYES: Pupils equal round and reactive. Extraocular motions intact. No scleral icterus. ENT: Nose without bleeding, or drainage, Airway patent. NECK: Trachea midline. Supple CARDIOVASCULAR: Regular rate and rhythm without murmurs, gallops, or rubs. RESPIRATORY: Fair air entry bilaterally. No wheezes, rales, or rhonchi. GASTROINTESTINAL: Abdomen soft, non-tender, nondistended. Positive bowel sounds MUSCULOSKELETAL: Extremities without clubbing, cyanosis, or edema. Pedal pulses appreciated NEUROLOGICAL: Awake and alert. Moves all extremity. Normal speech.no focal neurological deficit Procedures IR assessment and drainage of ascites A/P Assessment and Plan 66-year-old female with history of primary biliary cirrhosis, diagnosed in the , recent left hip fracture with surgical repair who presented to the ER with melena going on for about 48 hours with diarrhea, abdominal distention/ discomfort and nausea. A/P: Melena Acute blood loss anemia ; secondary to GI bleed from esophageal varices Primary biliary cirrhosis Portal hypertension History of esophageal varices Hypotension Plan: Plan for EGD today 11/14/16 Clear liquid diet. Continue to follow serial H&H every 6 hrs, S/P GI panendoscopy, with cauterization of esophageal varices 11/11/15. Continue octreotide and Protonix drips, F/U GI recommendations,. Moderate ascites on CT 11/11, patient required O2 at 2 L nasal cannula while sleeping. Paracentesis on 11/13/16 The patient previously on propranolol 10 mg twice a day , for secondary prophylaxis for esophageal varices , will continue to monitor systolic blood pressure and resume beta nicolas at a lower dose bronchodilators when necessary. strict intake output, monitor and replete electrolytes, follow BUN/creatinine. Follow CBC and coags. Transfuse to keep hemoglobin above 7 g percent. S/P 2 u PRBC's on 11/11 Watch for hyperglycemia, SSI for glycemic control if needed. Rocephin 1 g every 24 hours initiated, for SBP prophylaxis Prophylaxis: Protonix drip, SCDs. No heparin or Lovenox in view of GI bleed. Jhonathan Moore MD Nov 14, 2016 11:00
[2016-11-14] MEDS: SODIUM CHLORIDE 0.9% FLUSH 5 ML FLUSH IV FLUSH SCH ×2 (11:56→22:15)
[2016-11-14] MEDS: cefTRIAXone INJ 1,000 MG in SODIUM CHLORIDE 0.9% INJ 100 ML IV SCH (14:18)
[2016-11-14] MEDS ORDERED: PROPOFOL 200 MG/20 ML AMP IV ONE (16:18)
[2016-11-14] MEDS ORDERED: DO NOT ADM ANY ANTICOAGULANT DRUGS XX PRN (16:40)
[2016-11-14] MEDS ORDERED: MIDAZOLAM HCL 2 MG/2 ML VIAL ONE (16:55)
[2016-11-14] MEDS ORDERED: MORPHINE SULFATE 4 MG/ML INJ IV PUSH ONE (18:45)
[2016-11-14] MEDS ORDERED: MORPHINE SULFATE 4 MG/ML INJ IV ONE (19:30)
--- NOTE | 2016-11-14 20:00 | RADRPT ---
EXAM DATE/TIME: 11/14/2016 19:17 [facility] COMPARISON: CHEST SINGLE AP, November 10, 2016, 20:00. INDICATIONS : Short of breath. MEDICAL HISTORY : Esophageal varices, GI bleed. SURGICAL HISTORY : None. ENCOUNTER: Subsequent ACUITY: 1 week PAIN SCORE: 10/10 LOCATION: [facility]. FINDINGS: A single portable frontal view of the chest shows bibasilar parenchymal opacities that are largely cu rvilinear in nature. Blunting of the costophrenic angles seen bilaterally. The heart is normal in siz e. Hazy opacity is seen involving the right lung. Bony structures are unremarkable. CONCLUSION: 1. New tiny bilateral pleural effusions. 2. Vague ground glass infiltrate involving the right lung. 3. Bibasilar atelectasis. Eddie Valadez Jr., MD on November 14, 2016 at 19:58 Board Certified Radiologist. This report was verified electronically.
--- NOTE | 2016-11-14 20:01 | RADRPT ---
EXAM DATE/TIME: 11/14/2016 19:22 [facility] COMPARISON: No previous studies available for comparison. INDICATIONS : Abdomen pain. MEDICAL HISTORY : Esophasgeal varices SURGICAL HISTORY : Paracentesis ENCOUNTER: Subsequent ACUITY: 1 week PAIN SCORE: 10/10 LOCATION: upper quadrant ,center FINDINGS: Supine view of the abdomen was performed. The abdominal bowel gas pattern is nonspecific. Gas-filled loops of nondilated large and small bowel. Gas is seen to the level of the rectal vault. No abnorma l masses, calcifications, or organomegaly is seen. The osseous structures are unremarkable. Femoral neck screws with intramedullary cyril involving the left hip. Prior fracture. CONCLUSION: Nonspecific bowel gas pattern without dilatation to suggest obstruction. Eddie Valadez Jr., MD on November 14, 2016 at 19:59 Board Certified Radiologist. This report was verified electronically.
[2016-11-14] MEDS: SODIUM CHLOR 0.9% 1000 ML INJ 1,000 ML IV SCH (22:15)
[2016-11-15] VITALS (12 sets, daily range): BP systolic 104–116; BP diastolic 53–59; PULSE 70–90; RESP 16–26; TEMP 97.7–98.1; O2SAT 94–98
[2016-11-15] MEDS: PANTOPRAZOLE INJ 80 MG in SODIUM CHLORIDE 0.9% INJ 100 ML IV SCH ×2 (00:35→09:46)
[2016-11-15] MEDS: OCTREOTIDE INJ 500 MCG in SODIUM CHLORID 0.9% 500 ML INJ 500 ML IV SCH ×3 (00:35→12:14)
[2016-11-15] MEDS: CHLORHEXIDINE GLUCONATE 2 % 1 PACK (2 CLOTHS) TOP SCH (04:00)
[2016-11-15] MEDS: SODIUM CHLORIDE 0.9% FLUSH 5 ML FLUSH IV FLUSH SCH ×2 (09:00→20:49)
[2016-11-15] MEDS: SPIRONOLACTONE 25 MG TAB PO SCH (09:46)
[2016-11-15] MEDS: FUROSEMIDE 20 MG TAB PO SCH (09:46)
--- NOTE | 2016-11-15 14:56 | HHI.GIFU ---
Subjective Remarks Resting in bed. No active bleeding. No n/v. Did have some esophageal discomfort last night, but much improved today (Pamela Zavala) Objective Vitals I&O Vital Signs Date Time Temp Pulse Resp B/P Pulse Ox O2 Delivery O2 Flow Rate FiO2 11/15/16 14:00 89 11/15/16 12:00 89 11/15/16 10:00 82 11/15/16 10:00 90 11/15/16 08:00 89 11/15/16 08:00 99 Room Air 11/15/16 06:00 76 11/15/16 04:00 97.8 77 26 106/58 97 11/15/16 04:00 77 11/15/16 02:00 70 11/15/16 00:00 97.9 79 24 116/57 94 11/15/16 00:00 79 11/14/16 22:00 74 11/14/16 20:00 98.1 82 26 108/56 94 11/14/16 20:00 78 11/14/16 19:10 93 Nasal Cannula 2.00 11/14/16 19:00 93 Nasal Cannula 2.00 11/14/16 18:00 86 11/14/16 16:50 87 15 112/59 94 Room Air 11/14/16 16:38 97.8 95 15 116/58 95 Room Air 11/14/16 16:00 83 11/14/16 16:00 98.3 82 20 102/60 96 I/O 11/14/16 11/14/16 11/14/16 11/15/16 11/15/16 11/15/16 07:00 15:00 23:00 07:00 15:00 23:00 Intake Total 1096 ml 1156 ml 1599 ml 1079 ml Output Total 725 ml 2250 ml 1825 ml 300 ml Balance 371 ml -1094 ml -226 ml 779 ml Intake Oral 0 ml 0 ml 120 ml 60 ml IV Total 1096 ml 1156 ml 1079 ml 1019 ml Other 400 ml Output Urine Total 725 ml 2250 ml 1825 ml 300 ml # Bowel Movements 0 0 0 0 Laboratory Date/Time Procedure Status Source Growth 11/13/16 14:15 Gram Stain - Final Resulted Fluid Peritoneal Fluid 11/13/16 14:15 Body Fluid Culture - Preliminary Resulted Fluid Peritoneal Fluid NO GROWTH IN 48 HOURS. 1/20/17 21:35 Aerobic Blood Culture - Final Complete Blood Peripheral NO GROWTH IN 5 DAYS 11/10/16 21:35 Anaerobic Blood Culture - Final Complete Blood Peripheral NO GROWTH IN 5 DAYS Imaging Last Impressions Chest X-Ray 11/14/16 0000 Signed Impressions: Service Date/Time: Monday, November 14, 2016 19:17 - CONCLUSION: 1. New tiny bilateral pleural effusions. 2. Vague ground glass infiltrate involving the right lung. 3. Bibasilar atelectasis. Eddie Valadez Jr., MD Abdomen X-Ray 11/14/16 0000 Signed Impressions: Service Date/Time: Monday, November 14, 2016 19:22 - CONCLUSION: Nonspecific bowel gas pattern without dilatation to suggest obstruction. Eddie Valadez Jr., MD Cyst Biopsy Asp-Paracentesis US 11/13/16 0600 Signed Impressions: Service Date/Time: Sunday, November 13, 2016 13:00 - CONCLUSION: Uncomplicated ultrasound guided paracentesis. Manjit López MD FACR Abdomen/Pelvis CT 11/10/16 1919 Signed Impressions: Service Date/Time: Thursday, November 10, 2016 20:47 - CONCLUSION: 1. Liver cirrhosis with moderate ascites. Mild varices in the upper abdomen. 2. Mild infiltrate right lung base. 3. Compression fracture of L2. 4. Small hiatal hernia. John Steele MD Physical Exam HEENT: Normocephalic; atraumatic; no jaundice. CHEST: Chest is clear to auscultation and percussion. CARDIAC: RRR ABDOMEN: Soft, nondistended, nontender; hepatosplenomegaly; bowel sounds are present in all four quadrants. Large amount of ascites EXTREMITIES: BLE edema. SKIN: Normal; no rash; no jaundice. 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 (Pamela Zavala [facility]) Assessment and Plan Plan ASSESSMENT: - Upper GI bleed with hx of cirrhosis, esophageal varices. Never had GI bleeding in past. She was on propranolol, but taken off of this in September after ORIF of her femur because she was having Hypotension. She reports melena mixed with red blood since . S/P EGD with cautery (11/11/16)---> cautery of a lesion at GE junction ? Dieulofoy lesion. Varices. Varices were not banded at that time secondary to active bleeding. S/P EGD with band ligation (11/14/16). Did have some discomfort last night but much improved today. 7.05/13.3. No active bleeding. Octreotide/Protonix Gtt. Clear liquids - Anemia secondary to acute blood loss. HS/P 3 units of PRBC. .05/13.3. - Primary biliary cirrhosis, esophageal varices. She was started on propranolol at that time, but taken off of this in September because when she broke her femur and underwent surgery and was having low blood pressure at that time. She does drink ETOH or use NSAIDs. She is on Actigall 300mg po TID. Dx by liver bx in 1991. Recently relocated from [place] and has not yet established with doctor here. - Ascites. Paracentesis (11/13/16). Lasix, furosemide. Ceftriaxone PLAN: - Heart healthy diet - D/C Octreotide gtt - D/C Protonix gtt - Protonix 40mg po BID - Cont. furosemide 20mg po daily - Cont. spironolactone 25mg po daily - Monitor HH - Transfuse as necessary - Consider BB once B/P allows. - Notify GI of active bleeding - Supportive care - Further recommendations to follow based on results of above - Pt seen and examined by Dr. Nath and myself and this note is written on his behalf (Pamela Zavala) Physician Comments seen, examined agree with above (Josefina Nath MD) Pamela Zavala Nov 15, 2016 14:56 Josefina Nath MD Nov 15, 2016 21:01
[2016-11-15] MEDS: PANTOPRAZOLE SOD 40 MG DELAYED RELEASE TAB PO SCH ×2 (15:03→20:49)
[2016-11-15] MEDS: cefTRIAXone INJ 1,000 MG in SODIUM CHLORIDE 0.9% INJ 100 ML IV SCH (15:03)
--- NOTE | 2016-11-15 16:44 | HHI.PR ---
Subjective Remarks Resting in bed comfortably, no bleeding today, patient had catheterization through EGD yesterday Also she told me her back pain improved after paracentesis Monitoring hemoglobin for today and advancing her diet per GI Objective Vitals Vital Signs Date Time Temp Pulse Resp B/P Pulse Ox O2 Delivery O2 Flow Rate FiO2 11/15/16 14:00 89 11/15/16 12:00 89 11/15/16 10:00 82 11/15/16 10:00 90 11/15/16 08:00 97.7 78 16 107/53 96 11/15/16 08:00 89 11/15/16 08:00 99 Room Air 11/15/16 06:00 76 11/15/16 04:00 97.8 77 26 106/58 97 11/15/16 04:00 77 11/15/16 02:00 70 11/15/16 00:00 97.9 79 24 116/57 94 11/15/16 00:00 79 11/14/16 22:00 74 11/14/16 20:00 98.1 82 26 108/56 94 11/14/16 20:00 78 11/14/16 19:10 93 Nasal Cannula 2.00 11/14/16 19:00 93 Nasal Cannula 2.00 11/14/16 18:00 86 11/14/16 16:50 87 15 112/59 94 Room Air I/O 11/14/16 11/14/16 11/14/16 11/15/16 11/15/16 11/15/16 07:00 15:00 23:00 07:00 15:00 23:00 Intake Total 1096 ml 1156 ml 1599 ml 1079 ml 2218 ml Output Total 725 ml 2250 ml 1825 ml 300 ml 1000 ml Balance 371 ml -1094 ml -226 ml 779 ml 1218 ml Intake Oral 0 ml 0 ml 120 ml 60 ml 750 ml IV Total 1096 ml 1156 ml 1079 ml 1019 ml 1468 ml Other 400 ml Output Urine Total 725 ml 2250 ml 1825 ml 300 ml 1000 ml # Bowel Movements 0 0 0 0 0 Result Diagram: 11/14/1632611/14/16326 Objective Remarks GENERAL: This is a well-nourished, well-developed patient, in no apparent distress. SKIN: No rashes, warm and dry HEAD: Atraumatic. Normocephalic. EYES: Pupils equal round and reactive. Extraocular motions intact. No scleral icterus. ENT: Nose without bleeding, or drainage, Airway patent. NECK: Trachea midline. Supple CARDIOVASCULAR: Regular rate and rhythm without murmurs, gallops, or rubs. RESPIRATORY: Fair air entry bilaterally. No wheezes, rales, or rhonchi. GASTROINTESTINAL: Abdomen soft, non-tender, nondistended. Positive bowel sounds MUSCULOSKELETAL: Extremities without clubbing, cyanosis, or edema. Pedal pulses appreciated NEUROLOGICAL: Awake and alert. Moves all extremity. Normal speech.no focal neurological deficit Procedures IR assessment and drainage of ascites A/P Assessment and Plan 66-year-old female with history of primary biliary cirrhosis, diagnosed in the 90s, recent left hip fracture with surgical repair who presented to the ER with melena going on for about 48 hours with diarrhea, abdominal distention/ discomfort and nausea. A/P: Melena Acute blood loss anemia ; secondary to GI bleed from esophageal varices Primary biliary cirrhosis Portal hypertension History of esophageal varices Hypotension Plan: Status post EGD today 11/14/16 showed esophageal viruses status post catheterization, advancing diet today per GI Continue to follow serial H&H S/P GI panendoscopy, with cauterization of esophageal varices 11/11/15. Continue octreotide and Protonix drips, F/U GI recommendations,. Moderate ascites on CT 11/11, patient required O2 at 2 L nasal cannula while sleeping. Paracentesis on 11/13/16 The patient previously on propranolol 10 mg twice a day , for secondary prophylaxis for esophageal varices , will continue to monitor systolic blood pressure and resume beta nicolas at a lower dose bronchodilators when necessary. strict intake output, monitor and replete electrolytes, follow BUN/creatinine. Follow CBC and coags. Transfuse to keep hemoglobin above 7 g percent. S/P 2 u PRBC's on 11/11 Watch for hyperglycemia, SSI for glycemic control if needed. Rocephin 1 g every 24 hours initiated, for SBP prophylaxis Prophylaxis: Protonix drip, SCDs. No heparin or Lovenox in view of GI bleed. Discharge Planning When cleared by Jhonathan Castillo MD Nov 15, 2016 16:44
[2016-11-15] MEDS: SODIUM CHLOR 0.9% 1000 ML INJ 1,000 ML IV SCH (18:57)
[2016-11-15] MEDS: URSODIOL 300 MG CAP PO SCH (20:49)
[2016-11-16] VITALS (13 sets, daily range): BP systolic 113–132; BP diastolic 55–66; PULSE 75–97; RESP 16–23; TEMP 98.2–99.2; O2SAT 90–96
[2016-11-16 04:34] LABS: AUTOMATED NEUTROPHIL # 2.9 TH/MM3 (1.8-7.7); BASOPHIL % 0.8 % (0.0-2.0); EOSINOPHIL # 0.2 TH/MM3 (0-0.4); EOSINOPHIL % 5.3 % (0.0-4.0); HEMATOCRIT 26.9 % (35.0-46.0); HEMO FLAGS DIFF FINAL; LYMPH % 18.8 % (9.0-44.0); LYMPHOCYTE # 0.8 TH/MM3 (1.0-4.8); MEAN CELL VOLUME 83.5 FL (80.0-100.0); MEAN CORPUSCULAR HEMOGLOBIN 28.1 PG (27.0-34.0); MEAN CORPUSCULAR HGB CONC 33.6 % (32.0-36.0); MONO % 8.3 % (0.0-8.0); NEUT % 66.8 % (16.0-70.0); PLATELET COUNT 131 TH/MM3 (150-450); RED BLOOD COUNT 3.22 MIL/MM3 (4.00-5.30); RED CELL DISTRIBUTION WIDTH 18.3 % (11.6-17.2); WHITE BLOOD COUNT 4.4 TH/MM3 (4.0-11.0)
[2016-11-16 04:49] LABS: BICARBONATE 23.6 MEQ/L (21.0-32.0); CALCIUM-PROTEIN CORRECTED 7.9 MG/DL (8.5-10.1); POTASSIUM 3.2 MEQ/L (3.5-5.1); TOTAL BILIRUBIN ADULT 0.7 MG/DL (0.2-1.0)
[2016-11-16] MEDS: CHLORHEXIDINE GLUCONATE 2 % 1 PACK (2 CLOTHS) TOP SCH (05:26)
[2016-11-16] MEDS ORDERED: CALCIUM GLUCONATE 10% 1 GM/10 ML VIAL IV PUSH ONE (06:30)
[2016-11-16] MEDS ORDERED: POTASSIUM CHLORIDE 25 MEQ EFFERVESCENT TAB PO ONE (06:30)
[2016-11-16] MEDS ORDERED: CALCIUM GLUCONATE INJ 1 GM in DEXTROSE 5% IN WATER 100ML INJ 100 ML IV ONE ×2 (06:45)
[2016-11-16] MEDS: SPIRONOLACTONE 25 MG TAB PO SCH (08:01)
[2016-11-16] MEDS: URSODIOL 300 MG CAP PO SCH ×3 (08:01→16:03)
[2016-11-16] MEDS: FUROSEMIDE 20 MG TAB PO SCH (08:02)
[2016-11-16] MEDS: PANTOPRAZOLE SOD 40 MG DELAYED RELEASE TAB PO SCH ×2 (08:02→19:49)
[2016-11-16] MEDS: SODIUM CHLORIDE 0.9% FLUSH 5 ML FLUSH IV FLUSH SCH ×2 (08:03→19:51)
--- NOTE | 2016-11-16 09:53 | RADRPT ---
EXAM DATE/TIME: 11/16/2016 08:17 [place] COMPARISON: No previous studies available for comparison. INDICATIONS : Left arm pain and swelling. MEDICAL HISTORY : Gastroesophageal reflux disease. Osteoporosis. Cirrhosis. Hiatal hernia. Anemia. SURGICAL HISTORY : Tonsillectomy. Hysterectomy. ENCOUNTER: Initial ACUITY: 1 day PAIN SCORE: 5/10 LOCATION: Left arm. FINDINGS: There are abnormal intraluminal echoes expanding the mid and distal basilic vein extending to the ant ecubital fossa. This blood vessel demonstrates no internal blood flow and no normal compression. The remaining veins of the left upper extremity are patent. Internal jugular vein is also patent with normal directional blood flow. CONCLUSION: 1. Occlusive thrombus in the mid and distal left basilic vein. 2. The remaining veins of the left upper extremity are patent. Sebastian Jones MD on November 16, 2016 at 9:49 Board Certified Radiologist. This report was verified electronically.
--- NOTE | 2016-11-16 10:17 | HHI.PR ---
Subjective Remarks Follow up GI bleed, anemia. The patient states that she feels OK today. Had a black bowel movement this morning. Denies abdominal pain, nausea, vomiting, chest pain, dyspnea. Does have LUE pain/swelling. Objective Vitals Vital Signs Date Time Temp Pulse Resp B/P Pulse Ox O2 Delivery O2 Flow Rate FiO2 11/16/16 08:00 98.9 77 20 132/60 94 11/16/16 08:00 77 11/16/16 07:35 95 21 11/16/16 06:00 79 11/16/16 04:00 98.9 79 17 113/63 94 11/16/16 04:00 79 11/16/16 02:00 75 11/16/16 00:00 99.1 80 16 117/55 92 11/16/16 00:00 80 11/15/16 22:00 79 11/15/16 20:00 80 11/15/16 20:00 98.0 83 24 104/55 96 11/15/16 18:00 87 11/15/16 16:00 81 11/15/16 16:00 98.1 80 21 105/55 97 11/15/16 14:00 89 11/15/16 12:00 97.9 84 17 113/59 98 11/15/16 12:00 89 I/O 11/15/16 11/15/16 11/15/16 11/16/16 11/16/16 11/16/16 07:00 15:00 23:00 07:00 15:00 23:00 Intake Total 1079 ml 2218 ml 398 ml 793 ml Output Total 300 ml 1000 ml 1000 ml 1100 ml Balance 779 ml 1218 ml -602 ml -307 ml Intake Oral 60 ml 750 ml 480 ml IV Total 1019 ml 1468 ml 398 ml 313 ml Output Urine Total 300 ml 1000 ml 1000 ml 1100 ml # Bowel Movements 0 0 Result Diagram: 11/16/16 0324 11/16/16 0324 Imaging Last Impressions Upper Extremity Ultrasound 11/16/16 0000 Signed Impressions: Service Date/Time: October 08:17 - CONCLUSION: 1. Occlusive thrombus in the mid and distal left basilic vein. 2. The remaining veins of the left upper extremity are patent. Sebastian Jones MD Chest X-Ray 11/14/16 0000 Signed Impressions: Service Date/Time: Monday, November 14, 2016 19:17 - CONCLUSION: 1. New tiny bilateral pleural effusions. 2. Vague ground glass infiltrate involving the right lung. 3. Bibasilar atelectasis. Eddie Valadez Jr., MD Abdomen X-Ray 11/14/16 0000 Signed Impressions: Service Date/Time: Monday, November 14, 2016 19:22 - CONCLUSION: Nonspecific bowel gas pattern without dilatation to suggest obstruction. Eddie Valadez Jr., MD Cyst Biopsy Asp-Paracentesis US 11/13/16 0600 Signed Impressions: Service Date/Time: Sunday, November 13, 2016 13:00 - CONCLUSION: Uncomplicated ultrasound guided paracentesis. Manjit López MD FACR Abdomen/Pelvis CT 11/10/16 1919 Signed Impressions: Service Date/Time: Thursday, November 10, 2016 20:47 - CONCLUSION: 1. Liver cirrhosis with moderate ascites. Mild varices in the upper abdomen. 2. Mild infiltrate right lung base. 3. Compression fracture of L2. 4. Small hiatal hernia. John Steele MD Objective Remarks General: No acute distress. Sitting up in a chair. Heart: Regular rate and rhythm. No murmur. Lungs: Clear to auscultation bilaterally. No wheezes, rales, or rhonchi. Breathing is nonlabored. Abdomen: Soft, nontender, nondistended. Extremities: No lower extremity edema. Left upper arm with swelling, tenderness. Psych: Alert and oriented. Procedures 11/11/16 EGD with cauterization of bleeding 11/13/16 paracentesis 11/14/16 EGD with band ligation of varices Urinary Catheter: No Vascular Central Line Catheter: No A/P Problem List: (1) GI bleed ICD Code: K92.2 Status: Acute (2) Anemia ICD Code: D64.9 Status: Acute (3) Hypocalcemia ICD Code: E83.51 Status: Acute (4) Primary biliary cirrhosis ICD Code: K74.3 Status: Acute (5) Esophageal varices ICD Code: I85.00 Status: Acute Assessment and Plan 1. GI bleed, anemia secondary to acute blood loss: Monitor H&H. Transfuse as necessary. Appreciate GI recommendations. Status post EGD 2 with cauterization of bleeding and banding of esophageal varices. 2. Esophageal varices: Status post banding. Consider restarting propranolol when blood pressure is stable. 3. Ascites: Status post paracentesis on 11/13/16. 4. GI prophylaxis: Protonix. 5. DVT prophylaxis: SCDs. Avoid chemical prophylaxis secondary to GI bleed. 6. Hypocalcemia: Supplement and recheck labs in the morning. 7. Hypokalemia: Supplement potassium. Recheck labs in the morning. 8. Left upper extremity superficial vein thrombosis: IV removed. Continue supportive care. Problem Qualifiers (1) GI bleed: Qualified Code: K92.2 - Gastrointestinal hemorrhage, unspecified gastrointestinal hemorrhage type (2) Anemia: Qualified Code: D64.9 - Anemia, unspecified type German Begum MD Nov 16, 2016 10:17
[2016-11-16] MEDS ORDERED: PNEUMOCOCCAL POLYVALENT INJ 25 MCG/0.5 ML SYR IM ONE (14:00)
[2016-11-16] MEDS ORDERED: INFLUENZA VIRUS VACCINE (QUADRIVALENT) 0.5 ML SYR IM ONE (14:00)
[2016-11-16] MEDS: cefTRIAXone INJ 1,000 MG in SODIUM CHLORIDE 0.9% INJ 100 ML IV SCH (14:42)
[2016-11-16] MEDS: SODIUM CHLOR 0.9% 1000 ML INJ 1,000 ML IV SCH (19:51)
[2016-11-17] VITALS: BP 96/72; PULSE 89; RESP 18; TEMP 98; O2SAT 95
[2016-11-17] MEDS: CHLORHEXIDINE GLUCONATE 2 % 1 PACK (2 CLOTHS) TOP SCH (03:28)
[2016-11-17 04:00] VITALS: BP 103/55; PULSE 82; RESP 18; TEMP 98.4; O2SAT 96
[2016-11-17 04:57] LABS: AUTOMATED NEUTROPHIL # 2.1 TH/MM3 (1.8-7.7); BASOPHIL % 0.7 % (0.0-2.0); EOSINOPHIL # 0.1 TH/MM3 (0-0.4); EOSINOPHIL % 4.1 % (0.0-4.0); HEMATOCRIT 25.5 % (35.0-46.0); HEMO FLAGS DIFF FINAL; LYMPH % 21.8 % (9.0-44.0); LYMPHOCYTE # 0.7 TH/MM3 (1.0-4.8); MEAN CELL VOLUME 82.5 FL (80.0-100.0); MEAN CORPUSCULAR HEMOGLOBIN 27.6 PG (27.0-34.0); MEAN CORPUSCULAR HGB CONC 33.5 % (32.0-36.0); MONO % 11.1 % (0.0-8.0); NEUT % 62.3 % (16.0-70.0); PLATELET COUNT 113 TH/MM3 (150-450); RED BLOOD COUNT 3.09 MIL/MM3 (4.00-5.30); RED CELL DISTRIBUTION WIDTH 18.5 % (11.6-17.2); WHITE BLOOD COUNT 3.4 TH/MM3 (4.0-11.0)
[2016-11-17 05:15] LABS: BICARBONATE 25.6 MEQ/L (21.0-32.0)
[2016-11-17 05:27] LABS: CALCIUM-PROTEIN CORRECTED 8.2 MG/DL (8.5-10.1)
[2016-11-17 07:13] VITALS: BP 99/59; PULSE 92; RESP 16; TEMP 99.3; O2SAT 92
[2016-11-17 08:00] VITALS: BP 96/50; PULSE 87; RESP 18; TEMP 98.5; O2SAT 97
[2016-11-17] MEDS: PANTOPRAZOLE SOD 40 MG DELAYED RELEASE TAB PO SCH (08:33)
[2016-11-17] MEDS: URSODIOL 300 MG CAP PO SCH ×2 (08:34→12:42)
[2016-11-17] MEDS: SODIUM CHLORIDE 0.9% FLUSH 5 ML FLUSH IV FLUSH SCH (08:34)
[2016-11-17] MEDS: SPIRONOLACTONE 25 MG TAB PO SCH (08:50)
[2016-11-17] MEDS: FUROSEMIDE 20 MG TAB PO SCH (08:50)
[2016-11-17] MEDS ORDERED: POTASSIUM CHLORIDE 20 MEQ CONTROLLED RELEASE TAB PO ONE (09:00)
--- NOTE | 2016-11-17 09:04 | HHI.PR ---
Subjective Remarks Follow-up anemia, hypokalemia. The patient has no complaints today. She wants to go home. Denies further bleeding episodes. She states that she had a normal bowel movement this morning. No abdominal pain, nausea, vomiting. Objective Vitals Vital Signs Date Time Temp Pulse Resp B/P Pulse Ox O2 Delivery O2 Flow Rate FiO2 11/17/16 08:00 98.5 87 18 96/50 97 11/17/16 07:13 99.3 92 16 99/59 92 11/17/16 04:00 98.4 82 18 103/55 96 11/17/16 00:00 98.0 89 18 96/72 95 11/16/16 20:00 98.2 97 20 114/56 95 11/16/16 19:37 96 Nasal Cannula 2.00 11/16/16 18:00 95 11/16/16 16:00 92 11/16/16 16:00 99.2 92 23 121/62 90 11/16/16 14:00 95 11/16/16 12:00 89 11/16/16 12:00 98.2 89 22 129/66 96 11/16/16 10:00 95 I/O 11/16/16 11/16/16 11/16/16 11/17/16 11/17/16 11/17/16 06:59 14:59 22:59 06:59 14:59 22:59 Intake Total 793 ml 715 ml 390 ml 240 ml Output Total 1100 ml Balance -307 ml 715 ml 390 ml 240 ml Intake Oral 480 ml 480 ml 200 ml IV Total 313 ml 235 ml 190 ml 240 ml Output Urine Total 1100 ml # Voids 3 3 2 # Bowel Movements 3 1 1 Result Diagram: 11/17/16 0359 11/17/16 0359 Imaging Last Impressions Upper Extremity Ultrasound 11/16/16 0000 Signed Impressions: Service Date/Time: October 08:17 - CONCLUSION: 1. Occlusive thrombus in the mid and distal left basilic vein. 2. The remaining veins of the left upper extremity are patent. Sebastian Jones MD Chest X-Ray 11/14/16 0000 Signed Impressions: Service Date/Time: Monday, November 14, 2016 19:17 - CONCLUSION: 1. New tiny bilateral pleural effusions. 2. Vague ground glass infiltrate involving the right lung. 3. Bibasilar atelectasis. Eddie Valadez Jr., MD Abdomen X-Ray 11/14/16 0000 Signed Impressions: Service Date/Time: Monday, November 14, 2016 19:22 - CONCLUSION: Nonspecific bowel gas pattern without dilatation to suggest obstruction. Eddie Valadez Jr., MD Cyst Biopsy Asp-Paracentesis US 11/13/16 0600 Signed Impressions: Service Date/Time: Sunday, November 13, 2016 13:00 - CONCLUSION: Uncomplicated ultrasound guided paracentesis. Manjit López MD FACR Abdomen/Pelvis CT 11/10/16 1919 Signed Impressions: Service Date/Time: Thursday, November 10, 2016 20:47 - CONCLUSION: 1. Liver cirrhosis with moderate ascites. Mild varices in the upper abdomen. 2. Mild infiltrate right lung base. 3. Compression fracture of L2. 4. Small hiatal hernia. John Steele MD Objective Remarks General: No acute distress. Heart: Regular rate and rhythm. No murmur. Lungs: Clear to auscultation bilaterally. No wheezes, rales, or rhonchi. Breathing is nonlabored. Abdomen: Soft, nontender, nondistended. Extremities: No lower extremity edema. Left upper arm swelling has decreased. Psych: Alert and oriented. Procedures 11/11/16 EGD with cauterization of bleeding 11/13/16 paracentesis 11/14/16 EGD with band ligation of varices Urinary Catheter: No Vascular Central Line Catheter: No A/P Problem List: (1) GI bleed ICD Code: K92.2 Status: Acute (2) Anemia ICD Code: D64.9 Status: Acute (3) Hypocalcemia ICD Code: E83.51 Status: Acute (4) Primary biliary cirrhosis ICD Code: K74.3 Status: Acute (5) Esophageal varices ICD Code: I85.00 Status: Acute Assessment and Plan 1. GI bleed, anemia secondary to acute blood loss: Monitor H&H. Transfuse as necessary. Appreciate GI recommendations. Status post EGD 2 with cauterization of bleeding and banding of esophageal varices. 2. Esophageal varices: Status post banding. Propranolol not restarted secondary to low blood pressure. 3. Ascites: Status post paracentesis on 11/13/16. Lasix and spironolactone on hold this morning secondary to low blood pressure. 4. GI prophylaxis: Protonix. 5. DVT prophylaxis: SCDs. Avoid chemical prophylaxis secondary to GI bleed. 6. Hypocalcemia: Slightly improved. 7. Hypokalemia: Potassium is still low. Supplement potassium. 8. Left upper extremity superficial vein thrombosis: IV removed. Continue supportive care. Discharge Planning Possible discharge home later today if cleared by gastroenterology. Problem Qualifiers (1) GI bleed: Qualified Code: K92.2 - Gastrointestinal hemorrhage, unspecified gastrointestinal hemorrhage type (2) Anemia: Qualified Code: D64.9 - Anemia, unspecified type German Begum MD Nov 17, 2016 09:04
--- NOTE | 2016-11-17 10:45 | HHI.GIFU ---
Subjective Remarks Resting in bed. No complaints. No bleeding. Tolerating diet. Would like to go home today. (Pamela Zavala) Objective Vitals I&O Vital Signs Date Time Temp Pulse Resp B/P Pulse Ox O2 Delivery O2 Flow Rate FiO2 11/17/16 08:00 98.5 87 18 96/50 97 11/17/16 07:13 99.3 92 16 99/59 92 11/17/16 04:00 98.4 82 18 103/55 96 11/17/16 00:00 98.0 89 18 96/72 95 11/16/16 20:00 98.2 97 20 114/56 95 11/16/16 19:37 96 Nasal Cannula 2.00 11/16/16 18:00 95 11/16/16 16:00 92 11/16/16 16:00 99.2 92 23 121/62 90 11/16/16 14:00 95 11/16/16 12:00 89 11/16/16 12:00 98.2 89 22 129/66 96 I/O 11/16/16 11/16/16 11/16/16 11/17/16 11/17/16 11/17/16 07:00 15:00 23:00 07:00 15:00 23:00 Intake Total 793 ml 715 ml 390 ml 240 ml Output Total 1100 ml Balance -307 ml 715 ml 390 ml 240 ml Intake Oral 480 ml 480 ml 200 ml IV Total 313 ml 235 ml 190 ml 240 ml Output Urine Total 1100 ml # Voids 3 3 2 # Bowel Movements 3 1 1 Laboratory Laboratory Tests Test 11/17/16 03:59 White Blood Count 3.4 Red Blood Count 3.09 Hemoglobin 8.5 Hematocrit 25.5 Mean Corpuscular Volume 82.5 Mean Corpuscular Hemoglobin 27.6 Mean Corpuscular Hemoglobin 33.5 Concent Red Cell Distribution Width 18.5 Platelet Count 113 Mean Platelet Volume 9.7 Neutrophils (%) (Auto) 62.3 Lymphocytes (%) (Auto) 21.8 Monocytes (%) (Auto) 11.1 Eosinophils (%) (Auto) 4.1 Basophils (%) (Auto) 0.7 Neutrophils # (Auto) 2.1 Lymphocytes # (Auto) 0.7 Monocytes # (Auto) 0.4 Eosinophils # (Auto) 0.1 Basophils # (Auto) 0.0 CBC Comment DIFF FINAL Differential Comment Sodium Level 142 Potassium Level 3.0 Chloride Level 109 Carbon Dioxide Level 25.6 Anion Gap 7 Blood Urea Nitrogen 12 Creatinine 0.52 Estimat Glomerular Filtration 118 Rate Random Glucose 94 Calcium Level 7.3 Protein Corrected Calcium 8.2 Total Protein 5.4 Date/Time Procedure Status Source Growth 11/13/16 14:15 Gram Stain - Final Complete Fluid Peritoneal Fluid 11/13/16 14:15 Body Fluid Culture - Final Complete Fluid Peritoneal Fluid Imaging Last Impressions Upper Extremity Ultrasound 11/16/16 0000 Signed Impressions: Service Date/Time: October 08:17 - CONCLUSION: 1. Occlusive thrombus in the mid and distal left basilic vein. 2. The remaining veins of the left upper extremity are patent. Sebastian Jones MD Chest X-Ray 11/14/16 0000 Signed Impressions: Service Date/Time: Monday, November 14, 2016 19:17 - CONCLUSION: 1. New tiny bilateral pleural effusions. 2. Vague ground glass infiltrate involving the right lung. 3. Bibasilar atelectasis. Eddie Valadez Jr., MD Abdomen X-Ray 11/14/16 0000 Signed Impressions: Service Date/Time: Monday, November 14, 2016 19:22 - CONCLUSION: Nonspecific bowel gas pattern without dilatation to suggest obstruction. Eddie Valadez Jr., MD Cyst Biopsy Asp-Paracentesis US 11/13/16 0600 Signed Impressions: Service Date/Time: Sunday, November 13, 2016 13:00 - CONCLUSION: Uncomplicated ultrasound guided paracentesis. Manjit López MD FACR Abdomen/Pelvis CT 11/10/16 1919 Signed Impressions: Service Date/Time: Thursday, November 10, 2016 20:47 - CONCLUSION: 1. Liver cirrhosis with moderate ascites. Mild varices in the upper abdomen. 2. Mild infiltrate right lung base. 3. Compression fracture of L2. 4. Small hiatal hernia. John Steele MD Physical Exam HEENT: Normocephalic; atraumatic; no jaundice. CHEST: Chest is clear to auscultation and percussion. CARDIAC: RRR ABDOMEN: Soft, nondistended, nontender; hepatosplenomegaly; bowel sounds are present in all four quadrants. small to moderate amount of ascites EXTREMITIES: BLE edema. SKIN: Normal; no rash; no jaundice. 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 (Pamela Zavala) Assessment and Plan Plan ASSESSMENT: - Upper GI bleed with hx of cirrhosis, esophageal varices. Never had GI bleeding in past. She was on propranolol, but taken off of this in September after ORIF of her femur because she was having Hypotension. She reports melena mixed with red blood since . S/P EGD with cautery (11/11/16)---> cautery of a lesion at GE junction ? Dieulofoy lesion. Varices. Varices were not banded at that time secondary to active bleeding. S/P EGD with band ligation (11/14/16). HH 8.5/25.5. No active bleeding. Protonix. Tolerating diet, no further bleeding. - Anemia secondary to acute blood loss. HS/P 3 units of PRBC. HH stable. - Primary biliary cirrhosis, esophageal varices. She was started on propranolol at that time, but taken off of this in September because when she broke her femur and underwent surgery and was having low blood pressure at that time. She does drink ETOH or use NSAIDs. She is on Actigall 300mg po TID. Dx by liver bx in 1991. Recently relocated from [place] and has not yet established with doctor here. - Ascites. Paracentesis (11/13/16). Lasix, furosemide. PLAN: - Okay to d/c home - Heart healthy diet- Low sodium diet- d/w patient - Fluid restriction 2L for now- d/w patient - Protonix 40mg po BID - FU ASTRID 2 weeks - Further recommendations to follow based on results of above - Pt seen and examined by Dr. Nath and myself and this note is written on his behalf (Pamela Zavala) Pamela Zavala Nov 17, 2016 10:45 Josefina Nath MD Nov 17, 2016 15:26
[2016-11-17 12:00] VITALS: BP 102/56; PULSE 93; RESP 18; TEMP 99; O2SAT 96
[2016-11-17] MEDS ORDERED: PANT40TA3 PO (12:22)
--- NOTE | 2016-11-17 12:22 | HHI.DCPOC ---
Discharge Care Plan Diagnosis: (1) Hypocalcemia (2) Anemia (3) Primary biliary cirrhosis (4) Esophageal varices (5) GI bleed Goals to Promote Your Health * To prevent worsening of your condition and complications * To maintain your health at the optimal level Directions to Meet Your Goals Take your medications as prescribed Follow your dietary instruction Follow activity as directed Keep your appointments as scheduled Take your immunizations and boosters as scheduled If your symptoms worsen call your PCP, if no PCP go to Urgent Care Center or Emergency Room Smoking is Dangerous to Your Health. Avoid second hand smoke Call the 24-hour hour crisis hotline for domestic abuse at German Begum MD Nov 17, 2016 12:22
--- NOTE | 2017-01-03 06:29 | HHI.DS ---
Discharge Summary Admission Date Nov 10, 2016 at 23:08 Discharge Date: Nov 17, 2016 Admitting Diagnosis GI bleed; esophageal varices (1) GI bleed ICD Code: K92.2 (2) Anemia ICD Code: D64.9 (3) Hypocalcemia ICD Code: E83.51 (4) Primary biliary cirrhosis ICD Code: K74.3 (5) Esophageal varices ICD Code: I85.00 Procedures 11/11/16 EGD with cauterization of bleeding 11/13/16 paracentesis 11/14/16 EGD with band ligation of varices Brief History - From Admission HPI 56-year-old female with history of primary biliary cirrhosis, diagnosed in the s, recent left hip fracture with surgical repair who presented to the ER with melena going on for about 48 hours with diarrhea, abdominal distention/ discomfort and nausea. She denies any hematemesis. She does have some shortness of breath and generalized weakness. Denies any fevers or chills. Denies any back pain. She has just moved to the area. PFSH Past Medical History Primary biliary cirrhosis with known esophageal varices and portal hypertension. She was taken off propranolol around the time of her hip fracture surgery due to borderline blood pressures. History of melena a few years ago for which she underwent EGD which revealed esophageal varices. Colonoscopy and was found to have some polyps in the colon which were removed She was told she had an enlarged spleen when she underwent left hip fracture repair. Family history noncontributory at this time Social History Tobacco Use: No Allergies-Medications (Allergen,Severity, Reaction): Coded Allergies: Dilaudid (Verified Allergy, Unknown, 11/10/16) Reported Meds & Prescriptions Reported Meds & Active Scripts Active Reported Multi Vitamin (Multiple Vitamin) 1 Tab Tab 1 Tab PO DAILY E400 (Vitamin E) 400 Unit Cap 400 Mg PO DAILY Ursodiol 300 Mg Cap 800 Mg PO TID Lorraine (Lorraine (Zingiber Officinalis)) 500 Mg Cap 500 Mg PO DAILY Ferrous Gluconate 324 Mg Tab 324 Mg PO DAILY B-12 (Cyanocobalamin) 1,000 Mcg Subl 800 Mcg SL DAILY Calcium Magnesium 750 (Calcium-Magnesium) 300-300 Mg Tab 1 Tab PO Calcium Carbonate 500 Mg Chew 500 Mg CHEW DAILY 500 mg calcium carbonate (200 mg elemental calcium) Review of Systems Except as stated in HPI: all other systems reviewed are Neg Imaging Last Impressions Upper Extremity Ultrasound 11/16/16 0000 Signed Impressions: Service Date/Time: October 08:17 - CONCLUSION: 1. Occlusive thrombus in the mid and distal left basilic vein. 2. The remaining veins of the left upper extremity are patent. Sebastian Jones MD Chest X-Ray 11/14/16 0000 Signed Impressions: Service Date/Time: Monday, November 14, 2016 19:17 - CONCLUSION: 1. New tiny bilateral pleural effusions. 2. Vague ground glass infiltrate involving the right lung. 3. Bibasilar atelectasis. Eddie Valadez Jr., MD Abdomen X-Ray 11/14/16 0000 Signed Impressions: Service Date/Time: Monday, November 14, 2016 19:22 - CONCLUSION: Nonspecific bowel gas pattern without dilatation to suggest obstruction. Eddie Valadez Jr., MD Cyst Biopsy Asp-Paracentesis US 11/13/16 0600 Signed Impressions: Service Date/Time: Sunday, November 13, 2016 13:00 - CONCLUSION: Uncomplicated ultrasound guided paracentesis. Manjit López MD FACR Abdomen/Pelvis CT 11/10/16 1919 Signed Impressions: Service Date/Time: Thursday, November 10, 2016 20:47 - CONCLUSION: 1. Liver cirrhosis with moderate ascites. Mild varices in the upper abdomen. 2. Mild infiltrate right lung base. 3. Compression fracture of L2. 4. Small hiatal hernia. John Steele MD PE at Discharge General: No acute distress. Heart: Regular rate and rhythm. No murmur. Lungs: Clear to auscultation bilaterally. No wheezes, rales, or rhonchi. Breathing is nonlabored. Abdomen: Soft, nontender, nondistended. Extremities: No lower extremity edema. Left upper arm swelling has decreased. Psych: Alert and oriented. Hospital Course The patient was admitted for further evaluation and treatment of diarrhea, abdominal pain, nausea, melena. She developed anemia secondary to acute blood loss from esophageal varices. Gastroenterology was consulted. She was continued on Protonix drip and octreotide drip. Patient had EGD with banding of varices. She was transfused 2 units per hemoglobin above 7. Bleeding resolved. Patient's diet was advanced. She was cleared for discharge by gastroenterology. Pt Condition on Discharge: Stable Discharge Disposition: Discharge Home Discharge Time: > 30 minutes Discharge Instructions DIET: Follow Instructions for: Heart Healthy Diet Fluid Restrictions: 2L/day Activities you can perform: Regular-No Restrictions Follow up Referrals: Gastroenterology - 2 Weeks @ [facility] PCP Follow-up - 1 Week New Medications: Pantoprazole (Pantoprazole) 40 Mg Tab 40 MG PO Q12HR GERD #60 Ref 0 TAB Continued Medications: Calcium Carbonate (Calcium Carbonate) 500 Mg Chew 500 MG CHEW DAILY 500 mg calcium carbonate (200 mg elemental calcium) Calcium Supplement Ref 0 TAB Calcium-Magnesium (Calcium Magnesium 750) 300-300 Mg Tab 1 TAB PO TAB Cyanocobalamin (B-12) 1,000 Mcg Subl 800 MCG SL DAILY Nutritional Supplement Ref 0 TAB.SL Ferrous Gluconate (Ferrous Gluconate) 324 Mg Tab 324 MG PO DAILY Lorraine (Zingiber Officinalis) (Lorraine) 500 Mg Cap 500 MG PO DAILY Multiple Vitamin (Multi Vitamin) 1 Tab Tab 1 TAB PO DAILY TAB Ursodiol (Ursodiol) 300 Mg Cap 800 MG PO TID Gallstones #90 Ref 0 CAP Vitamin E (E400) 400 Unit Cap 400 MG PO DAILY German Begum MD Jan 03, 2017 06:29
[2017-01-10] MEDS ORDERED: PRIL20CA9 PO (09:52)
[2017-01-10] MEDS ORDERED: FURO1TAB62 PO (09:52)
[2017-03-29] MEDS ORDERED: HYDR-3516 PO (10:28)
[2017-03-29] MEDS ORDERED: PANT40TA3 PO (10:28)
[2017-03-29] MEDS ORDERED: PROP10TA6 PO (10:28)
[2017-03-29] MEDS ORDERED: ALDA50TA2 PO (10:28)
== END 2016-11-17 14:16 | disposition home or self-care (01) | DRG 432 ==
LOC: NEPC 17:04 → NEDA 23:08 → NEDH 11-11 02:31 → N03B 11-11 09:57 → HOCA 11-17 06:45
PROVIDERS: ADMIT Family Medicine; ATTEND Family Medicine
PROC: 30233N1 Transfusion of Nonautologous Red Blood Cells into Peripheral Vein, Percutaneous Approach (ICD-10-PCS; 2016-11-10)
PROC: 0W3P8ZZ Control Bleeding in Gastrointestinal Tract, Via Natural or Artificial Opening Endoscopic (ICD-10-PCS; principal; 2016-11-11 16:45)
PROC: 0W9G3ZX Drainage of Peritoneal Cavity, Percutaneous Approach, Diagnostic (ICD-10-PCS; 2016-11-13)
PROC: 06L34CZ Occlusion of Esophageal Vein with Extraluminal Device, Percutaneous Endoscopic Approach (ICD-10-PCS; 2016-11-14)
DX: K74.3 Primary biliary cirrhosis (principal); I85.11 Secondary esophageal varices with bleeding; K76.6 Portal hypertension; R18.8 Other ascites; D62 Acute posthemorrhagic anemia; I82.612 Acute embolism and thrombosis of superficial veins of left upper extremity; E83.51 Hypocalcemia; K22.8 Other specified diseases of esophagus; M19.90 Unspecified osteoarthritis, unspecified site; M81.0 Age-related osteoporosis without current pathological fracture; Z86.010 Personal history of colon polyps; Z88.5 Allergy status to narcotic agent; Z96.649 Presence of unspecified artificial hip joint; E87.6 Hypokalemia; Z23 Encounter for immunization
CPT/HCPCS: 36430; 49083; 71010; 74000; 74177; 76937; 80048; 80053; 81001; 82042; 82150; 82945; 83605; 83615; 83690; 83735; 84100; 84155; 84157; 85014; 85018; 85025; 85027; 85610; 85730; 86850; 86900; 86901; 86920; 87040; 87070; 87205; 88112; 88305; 89051; 90471; 90732; 93005; 93971; 94664; 96361; 96374; 96375; 96376; C1729; C9113; G0009; J0171; J0610; J0696; J0780; J2250; J2270; J2354; J2405; J3010; J3480; J7030; J7040; J7050; P9016; Q9967

== ENCOUNTER → 2017-01-10 | Outpatient (CLI) | payer MEDICARE ==
[~2017-01-10] VITALS: Ht 165.1 cm; Wt 65.2 kg
[~2017-01-10] MED LIST: ALDA50TA2 PO; CALC500C6 CHEW; CALCTAB10 PO; CHLORHEXIDINE GLUCONATE 2 % 1 PACK (2 CLOTHS) TOP SCH; CYAN100025 SL; FERR324T PO; FURO1TAB62 PO; GING500C PO; HYDR-3516 PO; INSULIN HUMAN REGULAR 1,000 UNITS/10 ML VIAL SQ PRN; LACTATED RINGER'S 1000 ML IV SCH; LEVOFLOXACIN/DEXTROSE 500 MG/100 ML IVPB IV ONE; METOPROLOL TARTRATE 25 MG TAB PO PRN; MULT-135 PO; PANT40TA3 PO; POVIDONE IODINE 5% (ANTISEPSIS KIT) 4 APPLICATIONS NASAL SCH; PRIL20CA9 PO; PROP10TA6 PO; PROPOFOL 200 MG/20 ML AMP IV ONE; SODIUM CHLORID 0.9% 500 ML IV SCH; URSO300C2 PO; [UNRECOGNIZED DRUG - CODE] PO
[2017-01-10 09:45] VITALS: BP 102/61; PULSE 71; RESP 20; TEMP 98; O2SAT 97
[2017-01-10 12:06] VITALS: TEMP 97.8
--- NOTE | 2017-01-10 12:15 | GIPROC ---
[facility] [address] [facility]. [facility], [address] EGD PROCEDURE REPORT EXAM DATE: 01/10/2017 PATIENT NAME: Tasha Mcneill MR #: [id number] BIRTHDATE: 1950 ATTENDING: Josefina Nath MD ORDER #: [id number] PHOTOGRAPHIC EQUIPMENT MECHANIC: Devonte Shah and Braydon Lauren STATUS: outpatient INDICATIONS: The patient is a 66 yr old female here for an EGD due to liver cirrhosis esophageal varices PROCEDURE PERFORMED: EGD w/ biopsy EGD w/ band ligation of varices MEDICATIONS: None and Per Anesthesia. TOPICAL ANESTHETIC: none CONSENT: The patient understands the risks and benefits of the procedure and understands that these risks include, but are not limited to: sedation, allergic reaction, infection, perforation and/or bleeding. Alternative means of evaluation and treatment include, among others: physical exam, x-rays, and/or surgical intervention. The patient elects to proceed with this endoscopic procedure. medical equipment was checked for proper function. Hand hygiene and appropriate measures for infection prevention was taken. After the risks, benefits and alternatives of the procedure were thoroughly explained, Informed consent was verified, confirmed and timeout was successfully executed by the treatment team. The patient was anesthetized with topical anesthesia and the Pentax EG-[id number] endoscope was introduced through the mouth and advanced to the second portion of the duodenum. Retroflexed views revealed a hiatal hernia The gastroscope was then slowly withdrawn and removed. Duodenitis second portion-biopsy gastritis antrum-biopsy esophageal varices grade 3 s/p banding times 2. ADVERSE EVENTS: There were no complications. IMPRESSIONS: 1. Duodenitis second portion-biopsy gastritis antrum-biopsy esophageal varices grade 3 s/p banding times 2 2. Retroflexed views revealed a hiatal hernia RECOMMENDATIONS: 1. Await biopsy results. Biopsy results will not be ready for 7-10 days. If you don't hear from us in two weeks, call our office for biopsy results. 2. Anti-reflux regimen 3. Continue PPI 4. Soft diet PATIENT CONDITION: stable DISPOSITION: Home REPEAT EXAM: EGD pending biopsy results Josefina Nath MD eSigned: Josefina Nath MD 01/10/2017 12:15 PM cc: Vladimir Qureshi M.D. PATIENT NAME: Tasha Mcneill MR#: [id number]
[2017-01-10 12:25] VITALS: BP 116/56; PULSE 79; RESP 16; O2SAT 98
== END ==
LOC: HEND 08:47
PROVIDERS: ATTEND Internal Medicine Gastroenterology
DX: I85.00 Esophageal varices without bleeding (principal); K29.50 Unspecified chronic gastritis without bleeding; K44.9 Diaphragmatic hernia without obstruction or gangrene; K74.60 Unspecified cirrhosis of liver; R12 Heartburn
CPT/HCPCS: 00740; 43239; 43244; 88305; 88312; J1956

== ENCOUNTER → 2017-03-29 | Outpatient (CLI) | payer MEDICARE ==
[~2017-03-29] VITALS: Ht 165.1 cm; Wt 64.8 kg
[~2017-03-29] MED LIST changes: -CALC500C6 CHEW; -CHLORHEXIDINE GLUCONATE 2 % 1 PACK (2 CLOTHS) TOP SCH; +CHLORHEXIDINE GLUCONATE 2 % 1 PACK (2 CLOTHS) TOPICAL PRN; +LACTATED RINGER'S 1000 ML IV PRN; -LACTATED RINGER'S 1000 ML IV SCH; -LEVOFLOXACIN/DEXTROSE 500 MG/100 ML IVPB IV ONE; +POVIDONE IODINE 5% (ANTISEPSIS KIT) 4 APPLICATIONS EACH NARE PRN; -POVIDONE IODINE 5% (ANTISEPSIS KIT) 4 APPLICATIONS NASAL SCH; +SODIUM CHLORID 0.9% 500 ML IV PRN; -SODIUM CHLORID 0.9% 500 ML IV SCH; -[UNRECOGNIZED DRUG - CODE] PO
[2017-03-29 10:30] VITALS: BP 109/69; PULSE 69; RESP 18; TEMP 97.9; O2SAT 99
--- NOTE | 2017-03-29 11:32 | GIPROC ---
[facility] [address] [facility]. [facility], [address] EGD PROCEDURE REPORT EXAM DATE: 03/29/2017 PATIENT NAME: Tasha Mcneill MR #: [id number] BIRTHDATE: 1950 ATTENDING: Joe Mendoza MD ORDER #: [id number] NEWSPAPER PHOTOGRAPHER: Sulema White and Maritza Oneill STATUS: outpatient INDICATIONS: The patient is a 66 yr old female here for an EGD due to therapeutic procedure PROCEDURE PERFORMED: EGD w/ band ligation of varices MEDICATIONS: None and Per Anesthesia. TOPICAL ANESTHETIC: none CONSENT: The patient understands the risks and benefits of the procedure and understands that these risks include, but are not limited to: sedation, allergic reaction, infection, perforation and/or bleeding. Alternative means of evaluation and treatment include, among others: physical exam, x-rays, and/or surgical intervention. The patient elects to proceed with this endoscopic procedure. medical equipment was checked for proper function. Hand hygiene and appropriate measures for infection prevention was taken. After the risks, benefits and alternatives of the procedure were thoroughly explained, Informed consent was verified, confirmed and timeout was successfully executed by the treatment team. The patient was anesthetized with topical anesthesia and the Pentax EG-[id number] endoscope was introduced through the mouth and advanced to the second portion of the duodenum. Retroflexion was performed and was normal The gastroscope was then slowly withdrawn and removed. STOMACH: Mild portal hypertensive gastropathy was found. DUODENUM: The duodenal mucosa appeared normal in the bulb and second portion of the duodenum. ESOPHAGUS: There were 3 columns of large varices in the mid esophagus and distal esophagus. There was evidence of prior scarring and a jarvis spot sign. ADVERSE EVENTS: There were no complications. IMPRESSIONS: 1. Portal hypertensive gastropathy was found 2. Esophageal Varices, Grade 4 with Javris spotts and scar of previous banding, 3 bands applied successfully 2. Normal duodenal mucosa in the bulb and second portion of the duodenum 3. Retroflexion was performed and was normal RECOMMENDATIONS: No treatment PATIENT CONDITION: stable DISPOSITION: Observation REPEAT EXAM: Return 6- 8 weeks EGD and check for Varices Jeo Mendoza MD eSigned: Joe Mendoza MD 03/29/2017 11:31 AM cc: PATIENT NAME: Tasha Mcneill MR#: [id number]
[2017-03-29 11:55] VITALS: BP 117/63; PULSE 67; RESP 18; O2SAT 97
== END ==
LOC: HEND 09:53
PROVIDERS: ATTEND Internal Medicine Gastroenterology
DX: I85.00 Esophageal varices without bleeding (principal); K76.6 Portal hypertension; K31.89 Other diseases of stomach and duodenum
CPT/HCPCS: 00740; 43244; J3010

== ENCOUNTER → 2017-06-18 | Day surgery (SDC) | payer MEDICARE ==
[~2017-06-18] MED LIST changes: -CALCTAB10 PO; -CHLORHEXIDINE GLUCONATE 2 % 1 PACK (2 CLOTHS) TOPICAL PRN; -INSULIN HUMAN REGULAR 1,000 UNITS/10 ML VIAL SQ PRN; -LACTATED RINGER'S 1000 ML IV PRN; -METOPROLOL TARTRATE 25 MG TAB PO PRN; -MULT-135 PO; -POVIDONE IODINE 5% (ANTISEPSIS KIT) 4 APPLICATIONS EACH NARE PRN; -PRIL20CA9 PO; -SODIUM CHLORID 0.9% 500 ML IV PRN
--- NOTE | 2017-06-18 10:46 | GIPROC ---
[facility] [address] [facility], [address] EGD PROCEDURE REPORT EXAM DATE: 06/18/2017 PATIENT NAME: Tasha Mcneill MR #: [id number] BIRTHDATE: 1950 ATTENDING: Mohsen Mcmanus MD ORDER #: [id number] PHOTOGRAMMETRIC SURVEYOR: STATUS: outpatient INDICATIONS: The patient is a 66 yr old female here for an EGD due to Cirrhosis PROCEDURE PERFORMED: EGD w/ biopsy MEDICATIONS: None, Per Anesthesia, None, and Per Anesthesia. TOPICAL ANESTHETIC: CONSENT: The patient understands the risks and benefits of the procedure and understands that these risks include, but are not limited to: sedation, allergic reaction, infection, perforation and/or bleeding. Alternative means of evaluation and treatment include, among others: physical exam, x-rays, and/or surgical intervention. The patient elects to proceed with this endoscopic procedure. medical equipment was checked for proper function. Hand hygiene and appropriate measures for infection prevention was taken. After the risks, benefits and alternatives of the procedure were thoroughly explained, Informed consent was verified, confirmed and timeout was successfully executed by the treatment team. The patient was anesthetized with topical anesthesia and the EG-[id number] ([id number]) endoscope was introduced through the mouth and advanced to the second portion of the duodenum. Retroflexed views revealed no abnormalities The gastroscope was then slowly withdrawn and removed. STOMACH: Mild portal hypertensive gastropathy was found in the gastric body. The endoscopy was otherwise normal. ADVERSE EVENTS: There were no complications. IMPRESSIONS: 1. Portal hypertensive gastropathy was found in the gastric body 2. Normal endoscopy otherwise 3. Retroflexed views revealed no abnormalities RECOMMENDATIONS: Follow-up: GI clinic 1 month(s) PATIENT CONDITION: stable DISPOSITION: Home REPEAT EXAM: Return 1 year EGD Mohsen Mcmanus MD eSigned: Mohsen Mcmanus MD 06/18/2017 10:46 AM cc: [facility]
== END | disposition home or self-care (01) ==
LOC: ESDC 08:28
PROVIDERS: ATTEND Internal Medicine Gastroenterology
DX: K74.60 Unspecified cirrhosis of liver (principal); K76.6 Portal hypertension; K31.89 Other diseases of stomach and duodenum
CPT/HCPCS: 00740; 43239; J3010